=== PATIENT | female | born 1975 | race Caucasian/White ===

== ENCOUNTER 2025-02-10 23:01 | Emergency (ER) | payer OTHER, SELFPAY ==
--- OUTSIDE RECORDS SUMMARY | 2025-02-07 18:40 | XMS_ITS | Encounter Summary ---
Author Organization [employer] Address [address], [place] [address] Care Team Providers Care Second Floor Operator Name Role Phone Lora Zamora PA-C Primary Care Provider [phone] Reason for Visit * Reason Onset Date Comments MEDICATION THERAPY MANAGEMENT Me d check. Video Visit 02/07/2025 Encounter Details Date Type Department Care Team (Late st Contact Info) Description 02/07/2025 6:40 PM CDT Telemedicine [place] [address] [facility] [address] [place] [address] Lora Zamora PA-C [address] [place], [place] [id number] Prediabetes (Primary Dx); Gastroesophageal reflux disease, unspecified whether esophagitis present; Depression, unspecified depression type; Anxiety (HRC) Social History Tobacco Use Types Packs/Day Years Used Date Smoking Tobacco: Former Cigarettes Smokeless Tobacco: Never Comments:Used to smoke in [employer] Alcohol Use Standard Drinks/Week Comments No 0 (1 standard drink = 0.6 oz pur e alcohol) rare PHQ-2 Answer Date Recorded PHQ-2 Score 2 01/22/2025 Comments No Sex and Gender Information Value Date Recorded Sex Assigned at Not on file Legal Sex Female 6:09 AM CDT Gender Identity Not on file Sexual Orientation Not on file 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 Height - - Body Mass Index 41.88 11/06/2024 10:20 AM CDT documented in this encounter Progress Notes * Lora Zamora PA-C - 02/07/2025 6:40 PM CDT Subjective: Today's visit with Lizet was conducted via telehealth (video) as it is the patient's preference and it is appropriate for the treatment being provided Historical: Chief Complaint Patient presents with MEDICATION THERAPY MANAGEMENT Med check. Video Visit Medication Check: Which medication(s) are you here to have reviewed/refilled? Famotidine, omeprazole, sertraline Do you have difficulty taking medications as prescribed? No Do you have medication side effect concerns? No Pt is only taking famotidine and omeprazole once a day rather than twice so she has a large supply from the pharmacy. She doesn't need these filled, but would like the rx updated to the correct dosing. She feels good on the sertraline and would like to keep it the same. I have personally reviewed the patient's allergies, medications, past medical history, and health maintenance record in detail and updated the patient record as necessary. Observed: Wt 244 lb (110.7 kg) Comment: pt reported. BMI 41.88 kg/m?? Physical Exam: General Appearance: alert, well appearing, and in no apparent distress Assessment/Plan: Prediabetes - Hgb A1C (Expected: Now) - Collect in Lab; Future Gastroesophageal reflux disease, unspecified whether esophagitis present - famotidine (PEPCID) 20 MG tablet; Take 1 Tablet (20 mg) by mouth daily at bedtime. Depression, unspecified depression type - sertraline (ZOLOFT) 50 MG tablet; Take 1 Tablet (50 mg) by mouth daily. Anxiety (HRC) - sertraline (ZOLOFT) 50 MG tablet; Take 1 Tablet (50 mg) by mouth daily. Other orders - omeprazole (PRILOSEC) 40 MG capsule; Take 1 Capsule (40 mg) by mouth daily. Medications updated. She is due to have her A1c rechecked so can schedule this at her convenience. F/u prn. Lora Zamora PA-C documented in this encounter Plan of Treatment Upcoming Encounters Date Type Department Care Team (Late st Contact Info) Description 02/28/2025 9:30 AM CDT Telemedicine [facility] [address] [facility] [address] [place] [address] Charlotte Avalos PA-C [address] [place] [address] Scheduled Orders Name Type Priority Associated Diagnoses Orde r Schedule Hgb A1C (Expected: Now) - Collect in Lab Lab Routine Prediabetes Expected: 02/07/2025, Expires: 08/06/2025 documented as of this encounter Visit Diagnoses Diagnosis Prediabetes- Primary Other abnormal glucose Gastroesophageal reflux disease, unspecified whether esophagitis present Depression, unspecified depression type Anxiety (HRC) Anxiety state, unspecified documented in this encounter Care Teams Second Floor Operator Relationship Specialty Start Date End Date Lora Zamora PA-C [address] [place] [address] PCP - General Physician Bumper Machine Operator 02/17/22 documented as of this encounter
[2025-02-10 23:05] VITALS: BP 116/73; PULSE 90; RESP 16; TEMP 35.7; O2SAT 97; BMI 42.5
--- NOTE | 2025-02-10 23:58 | ED.GENADULT ---
HPI - General Adult General Time Seen by Provider: 23:59 Date Seen: 02/10/25 Chief complaint: Fall/Minor Trauma Stated complaint: syncope, hit head Time Seen by Provider: 02/10/25 23:58 Source: patient and family (spouse) Mode of arrival: ambulatory History of Present Illness HPI narrative: Lizet is a 50 female presents to the emergency department for evaluation of a closed head injury s/p fall/syncope. Patient states that this evening she was getting ready to go for bed got to go to bathroom to brush her teeth when she reached down to grab the garbage can and she felt as if she was going to throw up, patient and woke up on the floor. Patient believes that she passed out, does not remember events but does vaguely remember not feeling well. Patient states that she hit the right side of her head on the corner while pulling at the closet. Patient reports event happened around 2200. Patient complains of right-sided head pain, tongue pain, and left neck pain. Patient reports history of prior neck fusion at C5-C6 and C8-T1. Patient denies any chest pain, shortness of breath, abdominal pain, vomiting, weakness, paresthesias, urinary or bowel incontinence. Patient reports feeling well earlier today. No other complaints. Patient is not on chronic anticoagulation. Related Data Allergies Allergy/AdvReac Type Severity Reaction Status Date / Time No Known Drug Allergies Allergy Verified 02/10/25 23:10 Review of Systems Narrative: Past medical history, past surgical history, medications, allergies, family history, and social history were reviewed with the patient. No additional pertinent items. A medically appropriate review of systems was performed with pertinent positives and negatives noted in HPI, all other systems negative. PFSH PFSH Social History Non-prescribed substance use: denies use Exam Narrative: Exam Narrative: General: Afebrile, in distress HEENT: Normocephalic, +erythema/ecchymosis to right frontal forehead, right side of face with TTP, no bony TTP, PERRL, EOMI, conjunctiva normal. Normal bite. +laceration/bite noted to right side of tongue with no active bleeding, MMM Neck: supple, +midline TTP Cardio: regular rate. regular rhythm Resp: Normal work of breathing, no respiratory distress, lungs clear bilaterally, no wheezing, rhonchi, rales Chest/Back: no visual signs of trauma, no midline tenderness, no CVA tenderness Abdomen: soft, non distension, no tenderness, no peritoneal signs Neuro: alert and fully oriented. CN II-XII intact. Normal strength and sensation in all extremities. MSK: no deformities. Normal range of motion Integumentary/Skin: no rash visualized, normal color Psych: normal affect, normal behavior Const: Vital Signs, click to edit/add: Vital Signs - 24 hr 02/10/25 23:05 Temperature 96.3 F L Pulse Rate [Left P ulse Oximeter] 90 Respiratory Rate 16 Blood Pressure [Ri ght Upper Arm] 116/73 Pulse Oximetry 97 Oxygen Delivery Me thod Room Air Course Vital Signs Vital signs: Initial Vital Signs Temperature 96.3 F L 02/10/25 23:05 Temperature Source Temporal Artery Scan 02/10/25 23:05 Pulse Rate 90 02/10/25 23:05 Pulse Rhythm Regular 02/10/25 23:05 Respiratory Rate 16 02/10/25 23:05 Blood Pressure 116/73 02/10/25 23:05 Blood Pressure Mean 87 02/10/25 23:05 Blood Pressure Position Sitting 02/10/25 23:05 Pulse Oximetry 97 02/10/25 23:05 Oxygen Delivery Method Room Air 02/10/25 23:05 Vital Signs Temperature 96.3 F L 02/10/25 23:05 Pulse Rate 90 02/10/25 23:05 Respiratory Rate 16 02/10/25 23:05 Blood Pressure 116/73 02/10/25 23:05 Pulse Oximetry 97 02/10/25 23:05 Oxygen Delivery Method Room Air 02/10/25 23:05 Temperature 96.3 F L 02/10/25 23:05 Pulse Rate 90 02/10/25 23:05 Respiratory Rate 16 02/10/25 23:05 Blood Pressure 116/73 02/10/25 23:05 Pulse Oximetry 97 02/10/25 23:05 Oxygen Delivery Method Room Air 02/10/25 23:05 Medications Administered Medications: Generic Name Dose Route Start Last Admin Trade Name Freq PRN Reason Stop Dose Admin Potassium Chloride 40 meq 02/11/25 03:45 02/11/25 03:57 Potassium Chloride 10 Meq Capsule Er PO 02/11/25 03:46 40 meq ONCE ONE Administration Discontinued Medications Generic Name Dose Route Start Last Admin Trade Name Freq PRN Reason Stop Dose Admin Sodium Chloride 1,000 mls @ 1,000 mls/hr 02/11/25 00:45 02/11/25 02:10 0.9 % Sodium Chloride 1000 Ml IV 02/11/25 01:44 Infused .Q1H ERIC Infusion Ketorolac Tromethamine 15 mg 02/11/25 00:46 02/11/25 00:49 Ketorolac 15 Mg/Ml Inj IVP 02/11/25 00:47 15 mg ONCE ONE Administration Medical Decision Making MDM Narrative Medical decision making narrative: Lizet is a 50 female presents to the emergency department for evaluation of a closed head injury s/p fall/syncope. Upon arrival patient is nontoxic appearing, afebrile, in distress. Patient hemodynamically stable vital signs within normal limits. Differential diagnosis includes was not limited to syncope - cardiac versus vasovagal versus dehydration versus metabolic/electrolyte versus intracranial hemorrhage versus seizures versus mechanical fall among others. Plan for EKG, comprehensive labs, CT imaging and re-evaluation. @ 0042 I personally reviewed and interpreted CT head and CT cervical spine which demonstrated no acute intracranial abnormality, no acute hemorrhage, acute infarct, no midline shift. No acute abnormality of the cervical spine with no acute fracture, post traumatic subluxation. I reviewed EKG which demonstrates normal sinus rhythm with normal axis, ventricular rate of 81 beats per minute, QTC 453, no acute ischemic change. No prior EKG to compare to. Comprehensive labs remarkable for mild leukocytosis white blood cell count 13.5, hemoglobin 12.5, initial lactic acid elevated at 2.4. Potassium slightly low 3.3 which was replaced in the emergency department, no other acute metabolic electrolyte abnormality, repeat lactic acid down trending at 2.1. Urinalysis with no evidence of acute infection. Patient was treated with 1 L IV fluid bolus, toradol. On re-evaluation patient reports ongoing headache, neck pain but otherwise reports improvement of symptoms, denies any weakness, dizziness. Patient able to ambulate without difficulty. I discussed results with patient. Unclear etiology of patient's fall, suspect likely vasovagal syncope. Less likely cardiac No evidence of arrhythmia noted, EKG, troponin with no evidence of acute ischemic change. No evidence of significant infection or metabolic/electrolyte abnormality. Less likely seizure however I did discuss this as a possibility with patient. Would suspect patient's initial lactic to be significantly higher and to completely normalize by repeat. Patient does feel comfortable and is requesting discharge home which I think is reasonable. At this time recommend close outpatient follow-up with her primary care provider for re-evaluation in further outpatient management/testing. Strict return precautions if any worsening symptoms. Patient understands and agrees the plan. Medical Records Medical records reviewed: Yes I reviewed the patient's medical records Lab Data Lab results reviewed: Yes I reviewed the patient's lab results Labs: Lab Results 02/11/25 02/11/25 02/11/25 Range/Units 00:30 01:45 02:40 WBC 13.55 H (4.50-11.00) K/uL RBC 3.93 L (4.00-5.20) m/uL Hgb 12.5 (12.0-16.0) gm/dL Hct 37.1 (33.0-51.0) % MCV 94 (80-100) fL MCH 32 (26-34) pg MCHC 34 (32-36) gm/dL RDW Coeff of [place] 12.1 (11.5-15.5) % Plt Count 346 (140-440) K/uL Neut % (Auto) 78.4 H (42.0-72.0) % Lymph % (Auto) 13.5 L (20-44) % [place] % (Auto) 7.4 (0.0-11.0) % Eos % (Auto) 0.4 (0.0-7.0) % Baso % (Auto) 0.2 (0.0-3.0) % Neut # (Auto) 10.60 H (1.7-7.0) K/uL Lymph # (Auto) 1.80 (0.90-2.90) K/uL [place] # (Auto) 1.00 H (0.00-0.90) K/UL Eos # (Auto) 0.10 (0.00-0.50) K/uL Baso # (Auto) 0.00 (0.00-0.30) K/uL Abs Immat Gran (auto) 0.00 (0.00-0.30) K/uL Imm/Tot Granulo (auto) 0.1 % Sodium 139 (135-149) mmol/L Potassium 3.3 L (3.6-5.1) mmol/L Chloride 104 (96-114) mmol/L Carbon Dioxide 26 (20-32) mmol/L Anion Gap 9 (7-15) mEq/L BUN 22 (7-30) mg/dL Creatinine 0.8 (0.5-1.5) mg/dL Estimated Creat Clear 71.84 Estimated GFR 89 ml/min Glucose 101 (60-115) mg/dL Lactate 2.4 H 2.1 H (0.5-1.9) mmol/L Calcium 9.0 (8.4-10.6) mg/dL Total Bilirubin 0.5 (0.1-1.5) mg/dL AST 24 (12-35) U/L ALT 27 (4-35) U/L Alkaline Phosphatase 71 (40-150) U/L Troponin I < 0.01 (0.01-0.04) ng/mL Total Protein 6.9 (6.0-8.3) g/dL Albumin 4.0 (3.3-5.0) g/dL Urine Color Yellow (Yellow) Urine Appearance Clear (Clear) Urine pH 6.0 (5.0-8.5) Ur Specific [place] 1.025 (1.000-1.030) Urine Protein Negative (Negative) Urine Glucose (UA) Negative (Negative) Urine Ketones Negative (Negative) Urine Blood Negative (Negative) Urine Nitrite Negative (Negative) Urine Bilirubin Negative (Negative) Urine Urobilinogen 1.0 (0.2-1.0) Ur Leukocyte Esterase Negative (Negative) Urine RBC 0-2 (0-2) Urine WBC 0-2 (0-5) Ur Squamous Epith Cells Few (None-Few) Amorphous Sediment Few A (None) Urine Bacteria Few A (None) Discharge Plan Discharge Clinical Impression: Closed head injury, Fall, Neck pain Patient Disposition: Home, Self-Care Condition: Stable Additional Instructions: Please follow-up with your primary care provider next 2-3 days for further evaluation and follow-up. Please call to schedule appointment. Please rest, drink plenty of fluids. Please alternate taking Tylenol 1000 mg and ibuprofen 600 mg every 6 hours as needed for pain. Please return to the emergency department if you develop severe headache, persistent vomiting, changes in mental status, focal weakness, paresthesias, any worsening symptoms. It was a pleasure taking care of you today. We hope you feel better soon. Stand Alone Forms: [employer] Info Instructions
--- NOTE | 2025-02-11 00:10 | CRLHL7_ITS ---
For Patients: As a result of the Cures Act, medical imaging exams and procedure reports are released immediately into your electronic medical record. You may view this report before your referring provider. If you have questions, please contact your health care provider. INDICATION: Trauma. TECHNIQUE: CT cervical spine without contrast. COMPARISON: None. FINDINGS: No acute fracture or suspicious osseous lesion. Atlantoaxial and atlantooccipital alignment are preserved with mild atlantoaxial degenerative changes. There are postoperative changes at the cervicothoracic junction without evidence of acute complication. Multilevel spondylosis and degenerative disc disease is evident with multifocal disc space height loss and multilevel facet arthropathy. Paraspinal soft tissues grossly within normal limits. Visualized portions of the lungs are clear. IMPRESSION: No acute abnormality of the cervical spine. Please note that all CT scans at this facility use dose modulation, iterative reconstruction, and/or weight-based dosing when appropriate to reduce radiation dose to as low as reasonably achievable. Dictated by aDrek Peters MD @ 02/11/2025 12:39:29 AM (Electronically Signed)
--- NOTE | 2025-02-11 00:10 | CRLHL7_ITS ---
For Patients: As a result of the Century Cures Act, medical imaging exams and procedure reports are released immediately into your electronic medical record. You may view this report before your referring provider. If you have questions, please contact your health care provider. INDICATION: Trauma. TECHNIQUE: CT head without contrast. COMPARISON: None. FINDINGS: No acute intracranial hemorrhage. No CT evidence of acute territorial infarct. No hydrocephalus or midline shift. Normal parenchymal volume. Mild mucosal disease of the bilateral maxillary sinuses in addition to the left sphenoid sinus. Mastoid air cells well ventilated. No acute calvarial fracture. IMPRESSION: No acute intracranial abnormality. Please note that all CT scans at this facility use dose modulation, iterative reconstruction, and/or weight-based dosing when appropriate to reduce radiation dose to as low as reasonably achievable. Dictated by Darek Peters MD @ 02/11/2025 12:36:46 AM (Electronically Signed)
[2025-02-11 00:39] LABS: Lactate* 2.4 mmol/L (0.5-1.9)
[2025-02-11 00:40] LABS: Hematocrit 37.1 % (33.0-51.0); Hemoglobin* 12.5 gm/dL (12.0-16.0); Immature Granulocytes Pct Auto 0.1 %; Mean Corpuscular HGB Conc 34 gm/dL (32-36); Mean Corpuscular Hemoglobin 32 pg (26-34); Mean Corpuscular Volume 94 fL (80-100); RDW Coefficient of Variation % 12.1 % (11.5-15.5); Red Blood Count 3.93 m/uL (4.00-5.20); White Blood Count* 13.55 K/uL (4.50-11.00)
[2025-02-11 00:41] LABS: Immature Granulocytes Abs Auto 0.00 K/uL (0.00-0.30); Lymphocytes Absolute Auto 1.80 K/uL (0.90-2.90); Slide Review Reflex No
[2025-02-11 00:59] LABS: Albumin* 4.0 g/dL (3.3-5.0); Chloride* 104 mmol/L (96-114); Sodium* 139 mmol/L (135-149)
[2025-02-11 01:00] LABS: Potassium* 3.3 mmol/L (3.6-5.1)
--- OUTSIDE RECORDS SUMMARY | 2025-02-11 01:00 | XMS_ITS | Encounter Summary ---
Author Organization [employer] Address [address] [place] [address] Care Team Providers Care Remote Control Assembler Name Role Phone Lora Zamora PA-C Primary Care Provider Reason for Visit * Reason Comments Refill Topiramate Encounter Details Date Type Department Care Team (Late st Contact Info) Description 02/02/2025 Refill [facility] [address] [facility] [address] [place], [place] [address] Charlotte Avalos PA-C [address] [place], [place] [id number] Refill (Topiramate ) Social History Tobacco Use Types Packs/Day Years Used Date Smoking Tobacco: Former Cigarettes Smokeless Tobacco: Never Comments:Used to smoke in [employer] Alcohol Use Standard Drinks/Week Comments [...] 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 Follow up requested by provider: 4 months Since last seen she has no showed or cancelled the following appointments: none Labs are up to date Yes Medication refilled per standing order. Medication Detail Medication Quantity Refills Start End topiramate (TOPAMAX) 25 MG tablet 180 Tablet 0 11/06/2024 11/06/2025 Sig: Take 1 Tablet (25 mg) by mouth two times a day. Route: Oral Class: E-Prescribing Order #: [id number] documented in this encounter Plan of Treatment Upcoming Encounters Date Type Department Care Team (Late st Contact Info) Description 02/28/2025 9:30 AM CDT Telemedicine [facility] [address] [facility] [address] [place] [address] Charlotte Avalos PA-C [address] [place] [address] documented as of this encounter Visit Diagnoses Diagnosis Morbid obesity with BMI of 40.0-44.9, adult (HRC) Binge-eating disorder, mild documented in this encounter Care Teams Remote Control Assembler Relationship Specialty Start Date End Date Lora Zamora PA-C [address] [place] [address] PCP - General Physician Bus Monitor 02/17/22 documented as of this encounter
--- OUTSIDE RECORDS SUMMARY | 2025-02-11 01:00 | XMS_ITS | Encounter Summary ---
Author Organization [employer] Address [address], [place] [address] Care Team Providers Care Cuff Stitcher Name Role Phone Lora Zamora PA-C Primary Care Provider [phone] Reason for Visit * Reason Comments Refill sertraline (ZOLOFT) 50 MG tablet [Pharmacy Med Name: SERTRALINE HCL 50 MG TABLET] Encounter Details Date Type Department Care Team (Late st Contact Info) Description 01/27/2025 Refill [facility] [address] [facility] [address] [place] [address] Lora Zamora PA-C [address] [place], [place] [phone] Refill (sertraline (ZOLOFT) 50 MG tablet [Pharmacy Med Name: SERTRALINE HCL 50 MG TABLET]) Social History Tobacco Use Types Packs/Day Years Used Date Smoking Tobacco: Former Cigarettes Smokeless Tobacco: Never Comments:Used to smoke in [employer] school Alcohol Use Standard Drinks/Week Comments No [...] 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 Requested Prescriptions Signed Prescriptions Disp Refills sertraline (ZOLOFT) 50 MG tablet 30 Tablet 0 Sig: TAKE 1 TABLET BY MOUTH EVERY DAY Authorizing Provider: LORA ZAMORA Ordering User: JAZZ PRICE Future Appointments Date Time Provider Department Center 02/07/2025 6:40 PM Lora Zamora, DANNY [facility] 02/28/2025 9:30 AM Charlotte Avalos PA-C [address] [facility] [address] * Char Winslow [facility] - 01/27/2025 8:35 AM CDT sertraline (ZOLOFT) 50 MG tablet [Pharmacy Med Name: SERTRALINE HCL 50 MG TABLET] Medication started: 05/02/2019 Last ordered by LORA ZAMORA: 11/01/2024 (87 days ago) QTY: 90, Refills: 0, Sig: take 1 tablet by mouth every day (unchanged) -> An office visit is overdue (performed over 14 months ago, required every 12 months). Last qualifying visit: 12/01/2023 (with LORA ZAMORA) Next scheduled visit: 02/07/2025 (with LORA ZAMORA) Age: 49 [employer] Embedded Refills, Reference: [id number], 01/27/2025 8:35:14 AM CDT, Pool: IRMA Refill Centralized Services - Primary Care [[id number]] ([id number]) documented in this encounter Plan of Treatment Upcoming Encounters Date Type Department Care Team (Late st Contact Info) Description 02/28/2025 9:30 AM CDT Telemedicine [facility] [address] [facility] [address] [place], [place] [address] Charlotte Avalos PA-C [address] [place], [place] [phone] documented as of this encounter Visit Diagnoses Diagnosis Depression, unspecified depression type Anxiety (HRC) Anxiety state, unspecified documented in this encounter Care Teams Cuff Stitcher Relationship Specialty Start Date End Date Lora Zamora PA-C [address] [place] [address] PCP - General Physician Beeswax Bleacher 02/17/22 documented as of this encounter
--- OUTSIDE RECORDS SUMMARY | 2025-02-11 01:00 | XMS_ITS | Encounter Summary ---
Author Organization [facility] Address [address], [place] [address] Care Team Providers Care Surgeon Assistant Name Role Phone Lora Zamora PA-C Primary Care Provider [phone] Reason for Visit * Reason Comments Refill famotidine (PEPCID) 20 MG tablet [Pharmacy Med Name: FAMOTIDINE 20 MG TABLET] Encounter Details Date Type Department Care Team (Late st Contact Info) Description 01/14/2025 Refill [place] [address] [facility] [address] [place] [address] Lora Zamora PA-C [address] [place], [place] [id number] Refill (famotidine (PEPCID) 20 MG tablet [Pharmacy Med Name: FAMOTIDINE 20 MG TABLET]) Social History Tobacco Use Types Packs/Day Years Used Date Smoking Tobacco: Former Cigarettes Smokeless Tobacco: Never Comments:Used to smoke in [facility] [employer] Alcohol Use Standard Drinks/Week Comments No 0 (1 standard drink = 0.6 oz pur e alcohol) rare PHQ-2 Answer Date Recorded PHQ-2 Score 1 08/02/2023 Comments No Sex and Gender Information Value Date Recorded Sex Assigned at Not on file Legal Sex Female 6:09 AM CDT Gender Identity Not on file Sexual Orientation Not on file 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 * Carol Chapin - 01/18/2025 9:07 AM CDT Medication Refill - Due for Visit Medication still pending, patient is due to be seen in the next 30 days. Called patient, was: unable to reach patient. 1st call attempted. Left message to call back. Scheduling Action: Patient needs to schedule an appointment in the next 30 days. If able to schedule, please document date of appointment and route to clinician/pool identified in nursing documentation below. * Nolan Cotter RN - 01/17/2025 4:26 PM CDT Further Assistance Needed on Refill from Clinical Mental Health Counselor Patient is due for Qualifying Visit or Qualifying Visit and Labs Medication is still pending. Patient is due for an Office/Video Visit in the next 30 days. Call Patient and document using .STEPHON. After attempting to schedule patient: If appointment is scheduled within 60 days: Please route to: Refill pool If unable to schedule appointment or scheduled greater than 60 days: Please route to: Lora Zamora PA-C or covering clinician Requested Prescriptions Pending Prescriptions Disp Refills famotidine (PEPCID) 20 MG tablet [Pharmacy Med Name: FAMOTIDINE 20 MG TABLET] 180 Tablet Sig: TAKE 1 TABLET BY MOUTH 2X/DAY NEEDED FOR HEARTBURN. TAKE 20-40 MG PRIOR TO BED (NIGHT REFLUX) documented in this encounter Plan of Treatment Upcoming Encounters Date Type Department Care Team (Late st Contact Info) Description 02/28/2025 9:30 AM CDT Telemedicine [facility] [address] [facility] [address] [place] [address] Charlotte Avalos PA-C [address] [place], [place] [address] documented as of this encounter Visit Diagnoses Diagnosis Gastroesophageal reflux disease, unspecified whether esophagitis present documented in this encounter Care Teams Surgeon Assistant Relationship Specialty Start Date End Date Lora Zamora PA-C [address] [place] [address] PCP - General Physician Assistant Terminal Manager 02/17/22 documented as of this encounter
--- OUTSIDE RECORDS SUMMARY | 2025-02-11 01:00 | XMS_ITS | Encounter Summary ---
Author Organization [employer] Address [address] [place] [address] Care Team Providers Care Program Planner Name Role Phone Lora Zamora PA-C Primary Care Provider [phone] Encounter Details Date Type Department Care Team (Late st Contact Info) Description 02/17/2018 Consent for Procedure/Treatme nt [facility] Operating Room [address] [place] [address] [facility], Provider CONSENT FOR PROCEDURE Social History Tobacco Use Types Packs/Day Years Used Date Smoking Tobacco: Former Cigarettes Smokeless Tobacco: Never Comments:Used to smoke in [facility] [employer] Alcohol Use Standard Drinks/Week Comments No 0 (1 standard drink = 0.6 oz pur e alcohol) rare Comments No Sex and Gender Information Value Date Recorded Sex Assigned at Not on file Legal Sex Female 6:09 AM CDT Gender Identity Not on file Sexual Orientation Not on file 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 Not on file Not on fi le documented as of this encounter Plan of Treatment Upcoming Encounters Date Type Department Care Team (Late st Contact Info) Description 02/28/2025 9:30 AM CDT Telemedicine [facility] [address] [facility] [address] [place], [place] [phone] Charlotte Avalos PA-C [address] [place], [place] [address] documented as of this encounter Visit Diagnoses Not on filedocumented in this encounter Additional Health Concerns Infection Onset Date Last Indicated Resolved Time R/O COVID19 08/28/2020 08/28/2020 08/29/2020 4:35 AM POLICE CADET R/O COVID19 04/18/2021 04/18/2021 04/19/2021 3:01 PM CDT R/O COVID19 04/21/2021 04/21/2021 04/22/2021 11:5 9 AM CDT R/O COVID19 04/23/2021 04/23/2021 04/24/2021 12:2 0 PM CDT COVID19 04/23/2021 04/23/2021 05/13/2021 3:18 AM POLICE CADET documented as of this encounter Care Teams Program Planner Relationship Specialty Start Date End Date Lora Zamora PA-C [address] [place] [address] PCP - General Physician Night Warehouse Manager 02/17/22 documented as of this encounter
--- OUTSIDE RECORDS SUMMARY | 2025-02-11 01:00 | XMS_ITS | Encounter Summary ---
Author Organization [employer] Address [address] [place] [address] Care Team Providers Care Quality Compliance Coordinator Name Role Phone Lora Zamora PA-C Primary Care Provider Encounter Details Date Type Department Care Team (Late st Contact Info) Description 10/06/2012 Correspondence [facility] Radiology [address] [place] [address] Radiology, Provider MRI SAFETY SHEET AND COMPATIBILITY FORM Social History Tobacco Use Types Packs/Day Years Used Date Smoking Tobacco: Never Smokeless Tobacco: Never Alcohol Use Standard Drinks/Week Comments No 0 (1 standard drink = 0.6 oz pur e alcohol) Comments No Sex and Gender Information Value Date Recorded Sex Assigned at Not on file Legal Sex Female 6:09 AM CDT Gender Identity Not on file Sexual Orientation Not on file documented as of this encounter Progress Notes * RADIOLOGY, PROVIDER - 10/06/2012 12:00 AM CDT documented in this encounter Plan of Treatment Upcoming Encounters Date Type Department Care Team (Late st Contact Info) Description 02/28/2025 9:30 AM CDT Telemedicine [facility] [address] [facility] [address] [place] [address] Charlotte Avalos PA-C [address] [place] [address] documented as of this encounter Visit Diagnoses Not on filedocumented in this encounter Additional Health Concerns Infection Onset Date Last Indicated Resolved Time R/O COVID19 08/28/2020 08/28/2020 08/29/2020 4:35 AM MANAGER FAST FOOD R/O COVID19 04/18/2021 04/18/2021 04/19/2021 3:01 PM CDT R/O COVID19 04/21/2021 04/21/2021 04/22/2021 11:5 9 AM CDT R/O COVID19 04/23/2021 04/23/2021 04/24/2021 12:2 0 PM CDT COVID19 04/23/2021 04/23/2021 05/13/2021 3:18 AM MANAGER FAST FOOD documented as of this encounter Care Teams Quality Compliance Coordinator Relationship Specialty Start Date End Date Lora Zamora PA-C [address] [place] [address] PCP - General Physician Laborer Heading 02/17/22 documented as of this encounter
--- OUTSIDE RECORDS SUMMARY | 2025-02-11 01:01 | XMS_ITS | Encounter Summary ---
Author Organization [employer] Address [address] [place] [address] Care Team Providers Care Clothes Shaker Name Role Phone Lora Zamora PA-C Primary Care Provider Encounter Details Date Type Department Care Team (Late st Contact Info) Description 02/11/2016 Correspondence None No Primary/Referring, y E EQUIPMENT EDUCATIONAL DIRECTOR TICKET Social History Tobacco Use Types Packs/Day Years Used Date Smoking Tobacco: Former Cigarettes Smokeless Tobacco: Never Comments:Used to smoke in [employer] Alcohol Use Standard Drinks/Week Comments No 0 (1 standard drink = 0.6 oz pur e alcohol) Comments No Sex and Gender Information Value Date Recorded Sex Assigned at Not on file Legal Sex Female 6:09 AM CDT Gender Identity Not on file Sexual Orientation Not on file 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 Not on file Not on fi le documented as of this encounter Plan of Treatment Upcoming Encounters Date Type Department Care Team (Late st Contact Info) Description 02/28/2025 9:30 AM CDT Telemedicine [facility] [address] [facility] [address] [place], [place] [address] Charlotte Avalos PA-C [address] [place] [address] documented as of this encounter Visit Diagnoses Not on filedocumented in this encounter Additional Health Concerns Infection Onset Date Last Indicated Resolved Time R/O COVID19 08/28/2020 08/28/2020 08/29/2020 4:35 AM INFORMATION SYSTEMS SECURITY OFFICER R/O COVID19 04/18/2021 04/18/2021 04/19/2021 3:01 PM CDT R/O COVID19 04/21/2021 04/21/2021 04/22/2021 11:5 9 AM CDT R/O COVID19 04/23/2021 04/23/2021 04/24/2021 12:2 0 PM CDT COVID19 04/23/2021 04/23/2021 05/13/2021 3:18 AM INFORMATION SYSTEMS SECURITY OFFICER documented as of this encounter Care Teams Clothes Shaker Relationship Specialty Start Date End Date Lora Zamora PA-C [address] [place] [address] PCP - General Physician Diffusion Furnace Operator 02/17/22 documented as of this encounter
--- OUTSIDE RECORDS SUMMARY | 2025-02-11 01:01 | XMS_ITS | Clinical Summary ---
Author Organization [facility] Address [address] [place] [address] Care Team Providers Care Metal Finisher Name Role Phone Lora Zamora PA-C Primary Care Provider [phone] Allergies Active Allergy Reactions Criticality Noted Date Comments Chlorhexidine Itching 02/17/2018 preop skin prep wipe caused itching Medications Montelukast Sodium (SINGULAIR PO) Take 10 mg by mouth At Bedtime Active albuterol (PROVENTIL HFA: VENTOLIN HFA) 108 (90 BASE) MCG/ACT inhaler Inhale 2 puffs into the lungs every 6 hours as needed Active ipratropium - albuterol 0.5 mg/2.5 mg/3 mL (DUONEB) 0.5-2.5 (3) MG/3ML nebulization Take 3 mLs by nebulization every 6 hours as needed for shortness of breath / dyspnea. 30 vial 1 2 Active hydrochlorothiaz sandy (HYDRODIURIL) 25 MG tablet Take 25 mg by mouth daily 2 Active tiotropium (SPIRIVA RESPIMAT) 2.5 MCG/ACT inhaler INHALE 2 PUFFS DAILY. INDICATIONS: FOR ASTHMA FLARES 2 Active sertraline (ZOLOFT) 100 MG tablet Take 100 mg by mouth daily 2 Active mometasone (ELOCON) 0.1 % external cream Apply topically daily as needed 3 Active metFORMIN (GLUCOPHAGE) 500 MG tablet Take 500 mg by mouth 2 times daily (with meals) 2 Active mepolizumab (NUCALA) 100 MG/ML auto-injector Inject 100 mg Subcutaneous every 28 days 3 Active lisinopril (ZESTRIL) 10 MG tablet Take 10 mg by mouth daily 2 Active lifitegrast (XIIDRA) 5 % opthalmic solution Place 1 drop into both eyes 2 times daily 2 Active levothyroxine (SYNTHROID/LEVOT HROID) 175 MCG tablet Take 175 mcg by mouth daily 2 Active blood glucose (ACCU-CHEK GUIDE) test strip PLEASE DISPENSE A GLUCOSE METER, TEST STRIPS AND LANCETS TO TEST UP TO 3 TIMES DAILY 1 Active fluticasone-salm eterol (ADVAIR DISKUS) 500-50 MCG/ACT inhaler Inhale 1 puff into the lungs 2 times daily 2 Active fluticasone (FLONASE) 50 MCG/ACT nasal spray [place] 1 spray into both nostrils 2 times daily 2 Active fexofenadine (EDUARDO) 180 MG tablet TAKE 1 TABLET BY MOUTH EVERY DAY (OTC , NOT COVERED) 2 Active Lactobacillus (PROBIOTIC ACIDOPHILUS PO) Take 1 tablet by mouth daily Active oxyCODONE (ROXICODONE) 5 MG tabletIndication s:S/P cervical spinal fusion Take 1-2 tablets (5-10 mg) by mouth every 4 hours as needed for moderate to severe pain 12 tablet 3 Active senna-docusate (SENOKOT-S/PERIC OLACE) 8.6-50 MG tabletIndication s:S/P cervical spinal fusion Take 1 tablet by mouth daily 30 tablet 3 Active methocarbamol (ROBAXIN) 750 MG tabletIndication s:S/P cervical spinal fusion Take 1 tablet (750 mg) by mouth every 6 hours as needed for muscle spasms (muscle spasm) 60 tablet 3 Active famotidine (PEPCID) 20 MG tablet Take 20 mg by mouth 2 times daily Active omeprazole (PRILOSEC) [address] capsule Take 20 mg by mouth every morning Active omeprazole (PRILOSEC) [address] capsule Take 40 mg by mouth every evening Active Social History Tobacco Use Types Packs/Day Years Used Date Smoking Tobacco: Never Smokeless Tobacco: Never Tobacco Cessation:Counseling Given: Not Answered Alcohol Use Standard Drinks/Week Comments Yes 0 (1 standard drink = 0.6 oz pur e alcohol) very rarely Adolescent Education Answer Date Record ed Getting School Help Needed Not on file 04/02 Comments No Sex and Gender Information Value Date Recorded Sex Assigned at Not on file Legal Sex Female 4:47 AM MASTER CERTIFIED RV TECHNICIAN Gender Identity Not on file Sexual Orientation Not on file Last Filed Vital Signs Vital Sign Reading Time Taken Comments Blood Pressure 118/60 01/13/2023 7:51 AM CDT Pulse 100 01/13/2023 7:51 AM CDT Temperature 36.4 C (97.5 F) 01/13/2023 7:51 AM CDT Respiratory Rate 17 01/13/2023 7:51 AM CDT Oxygen Saturation 95% 01/13/2023 7:51 AM CDT Inhaled Oxygen Concentration - - Weight 127.6 kg (281 lb 6.4 oz) 01/12/2023 7:00 AM CDT Height 161.9 cm (5' 3.74) 01/12/2023 7:00 AM CD T Body Mass Index 48.7 01/12/2023 7:00 AM CDT Plan of Treatment Health Maintenance Due Date Last Done Comments ADVANCE CARE PLANNING 1974 ANNUAL REVIEW OF HM ORDERS 1974 CT COLONOGRAPHY 1974 FIT 1974 FLEX SIG 1974 sDNA (Cologuard) 1974 YEARLY PREVENTIVE VISIT 1977 COLONOSCOPY 01/31/1984 COLORECTAL CANCER SCREENING 01/31/1984 HIV SCREENING 1989 HEPATITIS C SCREENING 01/31/1992 HEPATITIS B VACCINE (1 of 3 - 19+ 3-dose series) 1993 PAP 1995 LIPID 2014 TSH W/FREE T4 REFLEX 05/19/2022 05/19/2021, 05/19/20 21 PNEUMOCOCCAL VACCINE 50+ YEARS (3 of 3 - PCV20 or PCV21) 01/31/2024 02/10/2018, 03/24/2017 ZOSTER VACCINE (1 of 2) 01/31/2024 COVID-19 VACCINE (3 - 2023- season) 2024 11/04/2020, 10/07/2020 PHQ-2 (once per calendar year) 2024 MAMMO SCREENING 09/29/2024 09/29/2022, 09/03, 09/12/2021, Additional history exists INFLUENZA VACCINE (#1) 2025 , 06/02/2021, 03/29/2020, Additional history exists DIABETES SCREENING 01/12/2026 01/12/2023, 0 01/12/2023, 02/16/2022, Additional history exists DTAP/TDAP/TD VACCINE (3 - Td or Tdap) 09/28/2028 09/28/2018, 04/17/2008 HPV VACCINE (No Doses Required) Completed MENINGITIS VACCINE Aged Out No longer eligible based on patient's age to complete this topic Medical Devices Implanted Type Area Mechanic Industrial Truck Device Identifier Shelf Expiration Date Model / Serial / Lot Graft Bone Putty [place] Dbm 1ml [id number] - [id number] Implanted:Qty: 1 on 01/12/2023 by Guillermo Moya MD at [facility] Bone/Tissu e/Biologic N/A: Spine Cervical [employer] [id number] 11/16/2024 [id number] / [id number] / Cage Spnl 14x8mm Endoskeleton Tc 6d 12mm Sm Ti Radopq Lg Wdw - [id number] Implanted:Qty: 1 on 01/12/2023 by Guillermo Moya MD at [facility] Metallic Hardware/A nchor N/A: Spine Cervical [employer] [id number] 12/20/2025 [id number] / / [id number] Imp Plate Cerv Medt Zevo 23mm 1 Lvl [id number] - [id number] Implanted:Qty: 1 on 01/12/2023 by Guillermo Moya MD at [facility] Metallic Hardware/A nchor N/A: Spine Cervical [employer] [id number] / / [id number] Imp Scr Medt Zevo 3.5x13mm Sd [place] [id number] - [id number] Implanted:Qty: 2 on 01/12/2023 by Guillermo Moya MD at [facility] Metallic Hardware/A nchor N/A: Spine Cervical [employer] [id number] / / [id number] Imp Scr Medt Zevo 4.0x13mm Sd [place] [id number] - [id number] Implanted:Qty: 2 on 01/12/2023 by Guillermo Moya MD at [facility] Metallic Hardware/A nchor N/A: Spine Cervical [employer] [id number] / / [id number] Explanted Type Area Mechanic Industrial Truck Device Identifier Shelf Expiration Date Model / Serial / Lot 1 Plate, 4 Screws, And 4 Locking Screw Caps Explanted:Qty: 9 on 01/12/2023 by Guillermo Moya MD at [facility] N/A: Spine Cervical Procedures Procedure Name Priority Date/Time Associated Diagnosis Comments GLUCOSE BY METER Routine 01/12/2023 7:25 AM CDT TSH WITH FREE T4 REFLEX STAT 05/19/2021 11:04 AM MASTER CERTIFIED RV TECHNICIAN from Last 3 Months or Most Recently Relevant to Health Maintenance Results * Glucose by meter (01/12/2023 7:25 AM CDT) Pathologist [facility] GLUCOSE BY METER POCT 89 70 - 99 mg/dL 01/12/2023 7:32 AM CDT LABORATORY POC Comment:Dr/RN Notified Blood, Capillary BLOOD SPECIMEN / Unknown 01/12/2023 7:25 AM CDT 01/12/2023 7:32 AM CDT us Guillermo Moya MD LAB - BEAKER POCT Final Result LABORATORY POC [facility] Acute Care Lab [address] [facility] Lab (1st floor, no room number) [place] [address], [facility] [phone] * (ABNORMAL) TSH with free T4 reflex (05/19/2021 11:04 AM MASTER CERTIFIED RV TECHNICIAN) Pathologist [facility] TSH 5.53(H) 0.40 - 4.00 mU/L 05/19/2021 11:46 AM MASTER CERTIFIED RV TECHNICIAN [facility] LABORATORY Blood STRUCTURE OF LEFT UPPER LIMB / Unknown Venipuncture / Unknown 05/19/2021 11:04 AM MASTER CERTIFIED RV TECHNICIAN 05/19/2021 11:14 AM MASTER CERTIFIED RV TECHNICIAN us Reji Walsh MD LAB - BLOOD ORDERABLES Final Res ult [facility] LABORATORY [facility] Acute Care Lab [address] Lab (1st floor, no room number) [place] [address], [facility] [phone] from Last 3 Months or Most Recently Relevant to Health Maintenance Insurance [facility] [employer] Advance Directives For more information, please contact: [phone] * Full Code (Latest Code Status on File) Date Activated Date Inactivated Comments 01/12/2023 1:47 PM 01/13/2023 12:39 PM All basic a nd advanced life-sustaining interventions are performed as appropriate Question Answer Comments Code status determined by: Other (please leslee joshi) Care Teams Metal Finisher Relationship Specialty Start Date End Date Lora Zamora PA-C PCP - General Family Practice 03/29/12
--- OUTSIDE RECORDS SUMMARY | 2025-02-11 01:01 | XMS_ITS | Clinical Summary ---
Author Organization [facility] Address [address] [place] [address] Care Team Providers Care Bell Clerk Name Role Phone Lora Zamora PA-C Primary Care Provider [phone] Source Comments You are receiving this document as you are listed as the primary care provider,follow-up provider, or the patient has been referred to you for consultation.This is in compliance with the Medicare andMedicaid EHR Incentive Program,which states Providers who transition their patient to another setting of careor provider of care or refers their patient to another provider of care shouldprovide summary care record for each transition of care or referral. Gnzo Allergies No known active allergies Medications * This document contains information received from the source organization and may not represent a complete record from that organization. Probiotic Product (PRO-BIOTIC BLEND OR) Active Blood Glucose Monitoring Suppl (ACCU-CHEK GUIDE MT) w/Device KITIndications:H yperinsulinemia ([facility]) USE DIRECTED 1 Kit 021 Active ACCU-CHEK FASTCLIX lancetsIndicatio ns:Hyperinsuline jacqui ([facility]) USE TO TEST UP TO 3 TIMES DAILY 102 Each 021 Active blood glucose (ACCU-CHEK GUIDE) test stripIndications :Hyperinsulinemi a ([facility]) PLEASE DISPENSE A GLUCOSE METER, TEST STRIPS AND LANCETS TO TEST UP TO 3 TIMES DAILY 100 Strip 11 021 Active XIIDRA 5 % SOLN 022 Active guaiFENesin 1200 MG Active tiotropium (SPIRIVA RESPIMAT) 2.5 MCG/ACT inhalerIndicatio ns:Moderate persistent asthma, uncomplicated (HRC) Inhale 2 Puffs daily. 3 Each 3 023 Active ipratropium-albu terol (DUONEB) 0.5-2.5 (3) mg/3ml nebulizer solution Inhale 3 mL every 6 hours as needed for Wheezing. 120 mL 11 023 Active budesonide, INHALATION, (PULMICORT) 1 MG/2ML suspension 024 Active fluticasone-salm eterol (ADVAIR DISKUS) 500-50 MCG/ACT diskus inhalerIndicatio ns:Moderate persistent asthma, uncomplicated (HRC),Moderate persistent asthma with acute exacerbation (HRC) Inhale 1 Puff two times a day. Rinse mouth/gargle after use 180 Each 3 024 Active montelukast (SINGULAIR) 10 MG tabletIndication s:Moderate persistent asthma, uncomplicated (HRC) Take 1 Tablet (10 mg) by mouth daily at bedtime. 90 Tablet 3 024 Active Mepolizumab (NUCALA) 100 MG/ML SOAJIndications: Eosinophilic asthma,Severe persistent asthma without complication (HRC) INJECT 100MG SUBCUTANEOUSLY EVERY 4 WEEKS 1 mL 11 024 Active fluticasone propionate (FLONASE) 50 MCG/ACT nasal solution Place 2 Sprays into both nostrils daily. 48 mL 3 024 Active cyclobenzaprine (FLEXERIL) 10 MG tablet TAKE 1 TABLET BY MOUTH AT BEDTIME NEEDED FOR MUSCLE SPASMS. 30 Tablet 2 024 Active fexofenadine (EDUARDO) 180 MG tablet TAKE 1 TABLET BY MOUTH EVERY DAY. *NOT COVERED 90 Tablet 1 025 Active Polyethylene Glycol 3350 Mix with 64 oz of Gatorade/Powerad e and take as directed in patient instructions from GI at 6 PM the evening prior to your procedure. 238 g 025 Active semaglutide (OZEMPIC) 8 MG/3ML SOPN injectionIndicat ions:Morbid obesity with BMI of 40.0-44.9, adult (HRC),Impaired fasting glucose Inject 2 mg subcutaneously once every week. 9 mL 1 025 Active metFORMIN (GLUCOPHAGE) 500 MG tabletIndication s:Morbid obesity with BMI of 40.0-44.9, adult (HRC),Insulin resistance Take 1 Tablet (500 mg) by mouth two times a day with meals. 180 Tablet 1 025 Active lisinopril-hydro chlorothiazide (PRINZIDE) 10-12.5 MG tabletIndication s:Essential hypertension (HRC) TAKE 1 TABLET BY MOUTH EVERY DAY 90 Tablet 025 Active ALBUterol sulfate HFA 108 (90 Base) MCG/ACT inhalerIndicatio ns:Moderate persistent asthma, uncomplicated (HRC) INHALE 1-2 PUFFS EVERY 4 HOURS NEEDED FOR WHEEZING OR SHORTNESS OF BREATH. 3 Each 3 025 Active mometasone (ELOCON) 0.1 % creamIndications :Dermatitis APPLY TOPICALLY TWO TIMES DAILY NEEDED. 105 g 1 025 Active levothyroxine (SYNTHROID) 112 MCG tabletIndication s:Hypothyroidism , unspecified type (HRC) Take 1 Tablet (112 mcg) by mouth daily. 90 Tablet 3 025 Active topiramate (TOPAMAX) 25 MG tabletIndication s:Morbid obesity with BMI of 40.0-44.9, adult (HRC),Binge-eati ng disorder, mild TAKE 1 TABLET BY MOUTH TWICE A DAY 180 Tablet 025 Active omeprazole (PRILOSEC) 40 MG capsule Take 1 Capsule (40 mg) by mouth daily. 90 Capsule 3 025 Active famotidine (PEPCID) 20 MG tabletIndication s:Gastroesophage al reflux disease, unspecified whether esophagitis present Take 1 Tablet (20 mg) by mouth daily at bedtime. 90 Tablet 3 025 Active sertraline (ZOLOFT) 50 MG tabletIndication s:Depression, unspecified depression type,Anxiety (HRC) Take 1 Tablet (50 mg) by mouth daily. 90 Tablet 3 025 Active pilocarpine (AKA SALAGEN) 5 MG tablet Take 1 tablet by mouth 4 times daily. 40 tablet 3 015 2015 Discontinued(* Patient decision or formulary issue) omeprazole (PRILOSEC) 40 MG capsule TAKE 1 CAPSULE (40 MG) BY MOUTH TWO TIMES A DAY. 180 Capsule 3 024 2024 Discontinued(* Med change OR same med OR reorder, new dose/direction s) famotidine (PEPCID) 20 MG tabletIndication s:Gastroesophage al reflux disease, unspecified whether esophagitis present Take 1 Tablet (20 mg) by mouth two times daily as needed for Heartburn. Take 20 mg to 40 mg prior to going to bed to help prevent night reflux. 180 Tablet 025 2024 Discontinued sertraline (ZOLOFT) 50 MG tabletIndication s:Depression, unspecified depression type,Anxiety (HRC) TAKE 1 TABLET BY MOUTH EVERY DAY 90 Tablet 025 2024 Discontinued topiramate (TOPAMAX) 25 MG tabletIndication s:Morbid obesity with BMI of 40.0-44.9, adult (HRC),Binge-eati ng disorder, mild Take 1 Tablet (25 mg) by mouth two times a day. 180 Tablet 025 2024 Discontinued famotidine (PEPCID) 20 MG tabletIndication s:Gastroesophage al reflux disease, unspecified whether esophagitis present TAKE 1 TABLET BY MOUTH 2X/DAY NEEDED FOR HEARTBURN. TAKE 20-40 MG PRIOR TO BED (NIGHT REFLUX) 60 Tablet 025 2024 Discontinued(* Med change OR same med OR reorder, new dose/direction s) sertraline (ZOLOFT) 50 MG tabletIndication s:Depression, unspecified depression type,Anxiety (HRC) TAKE 1 TABLET BY MOUTH EVERY DAY 30 Tablet 025 2024 Discontinued(* Med change OR same med OR reorder, new dose/direction s) Active Problems Problem Noted Date Diagnosed Date Major depressive disorder, recurrent, mild 11/06 Degenerative disc disease, cervical 06/18/2023 Elevated IgE level 08/21/2022 Snoring 08/21/2022 Binge-eating disorder, mild 06/04/2022 Insulin resistance 12/09/2021 Dyslipidemia 12/09/2021 Morbid obesity 10/09/2020 Cervical cancer screening 04/20/2017 Overview (04/26/2017): From visit on 04/13/17: History of abnormal pap tests? No 2013 NILM 2016 NILM ,neg HPV 42 y.o. 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 Other atopic dermatitis and related conditions 0 12/23/2005 Resolved Problems Problem Noted Date Diagnosed Date Resolved Date Hypertension 04/21/2013 12/29/2022 Migraine headache 07/04/2009 02/06/2010 HTN (hypertension) 05/09/2007 3 Overview (03/13/2015): ICD 10 Moderate persistent asthma 03/29/2007 0 12/29/2022 Encounters Date Type Department Care Team Description 02/07/2025 6:40 PM CDT Telemedicine [address] [phone] Lora Zamora PA-C Prediabetes (Primary Dx); Gastroesophageal reflux disease, unspecified whether esophagitis present; Depression, unspecified depression type; Anxiety (HRC) 02/02/2025 Refill [facility] [address] [place] [address] Charlotte Avalos PA-C Refill (Topiramate ) 01/27/[address] [address] Lora Zamora PA-C Refill (sertraline (ZOLOFT) 50 MG tablet [Pharmacy Med Name: SERTRALINE HCL 50 MG TABLET]) 01/14/[address] [address] Lora Zamora PA-C Refill (famotidine (PEPCID) 20 MG tablet [Pharmacy Med Name: FAMOTIDINE 20 MG TABLET]) 12/26/2024 Results Follow-Up [address] [phone] Lora Zamora PA-C 12/25/2024 11:30 AM CDT Lab Visit [address] [address] Hypothyroidism, unspecified type (HRC) 12/24/[address] [address] Lora Zamora PA-C Refill (mometasone (ELOCON) 0.1 % cream [Pharmacy Med Name: MOMETASONE FUROATE 0.1% CREAM]) 12/20/[address] [address] Lora Zamora PA-C Refill (levothyroxine (SYNTHROID) 112 MCG tablet [Pharmacy Med Name: LEVOTHYROXINE 112 MCG TABLET]) 12/06/2024 10:20 AM CDT E-Visit [address] [phone] Lora Zamora PA-C Dx: Acute non-recurrent sinusitis, unspecified location (Primary Dx) 11/16/2024 Refill Pulmonary at [facility] [address] [address] Lora Zamora PA-C Refill (ALBUterol sulfate HFA 108 (90 Base) MCG/ACT inhaler [Pharmacy Med Name: ALBUTEROL HFA (PROVENTIL) INH]) from Last 3 Months Immunizations Immunization Administration Dates Next Due Flu Vac (3+ yrs) 04/10/2010,03/15/2009, 8 Fluzone Qiv Multidose Vial 0 .25 (6-35 Mos) 04/05/2019,05/03/2018,03/24/2017,2015,04/14/2013 H1n1 Miv Novartis 4+ Yr (Injected) 05/28/2009 Influenza (Flucelvax), Prese rv Free QIV 05/21/2023 Influenza IIV4 (Quadrivalent ) 0.5mL (11902) 07/29/2022,06/02/2021,03/29/2020,2013,04/14/2013 Influenza ccIIV3 6 months+ (Flucelvax) 05/11/2024 Influenza, Unspecified Formulation 03/24/2017 Moderna Monovalent 12+ 11/04/2020,10/07/2020 PCV13 (Prevnar) 03/24/2017 PPSV23 (Pneumovax) 02/10/2018 Tdap 09/28/2018,04/17/2008 Family History Medical History Relation Name Comments Asthma Father Parents Coronary Artery Disease Father Parents 59 y o had CABG x4v, both his parents but lived into 90s Heart Disease Father Parents Hyperlipidemia Father Parents Hypertension Father Parents Hypertension Mother Parents and father Obesity Mother Parents Early Brother 2 Reji Colón Obesity Brother 2 Reji Colón Other Brother 3 iatrogenic live r failure from medications Cancer, Colon Maternal Grandmother colon ca 50's Obesity Sister 1 Diabetes, Type II Negative Family History Relation Name Status Comments Father Parents Alive Mother Parents Alive Brother 1 (Age 26) iatrogenic complications of medication Brother 2 Reji Colón Alive Brother 3 Daughter 1 Alive Daughter 2 Alive Maternal Grandfather Maternal Grandmother Paternal Grandfather Paternal Grandmother Sister 1 Alive Sister 2 Alive Son Alive Social History Tobacco Use Types Packs/Day Years Used Date Smoking Tobacco: Former Cigarettes Smokeless Tobacco: Never Comments:Used to smoke in [email or web address] Alcohol Use Standard Drinks/Week Comments No [...] Industry Job Start Date Job End Date [employer] Not on file Not on file Not on fi le Last Filed Vital Signs Vital Sign Reading Time Taken Comments Blood Pressure 125/74 09/05/2024 10:15 AM [employer] Pulse 77 09/05/2024 10:15 AM [employer]ER Temperature 37.2 C (98.9 F) 12/29/2022 11:29 AM CDT Respiratory Rate 16 09/05/2024 10:15 AM [employer] METAL [employer]ER Oxygen Saturation 96% 09/05/2024 10:15 AM [employer] METAL [employer]ER Inhaled Oxygen Concentration - - Weight 110.7 kg (244 lb) 02/07/2025 5:35 PM CDT pt reported. Height 162.6 cm (5' 4) 11/06/2024 10:20 AM CDT Body Mass Index 41.88 11/06/2024 10:20 AM CDT Plan of Treatment Upcoming Encounters Date Type Department Care Team (Late st Contact Info) Description 02/28/2025 9:30 AM CDT Telemedicine [facility] [address] [place] [address] Charlotte Avalos, PA-C [address] [place] [address] Health Maintenance Due Date Last Done Comments Adult Preventive Visit 12/31/2021 , 04/13/2017, 03/02/2014 Pneumococcal Vaccine 50+ Yrs (3 of 3 - PCV) 02/10/2023 02/10/2018, 03/24/2017 Zoster/Shingles Vaccine (1 of 2) 01/31/2024 COVID-19 Vaccine (3 - season) 2024 11/04/2020, 10/07/2020 Prediabetes: HGBA1C 11/09/2024 11/10/2023, 12/29/2022, 12/11/2021, Additional history exists Influenza Vaccine (#1) 2025 , 05/21/2023, 07/29/2022, Additional history exists Mammogram 02/22/2026 02/23/2024, 09/03, 09/10/2021, Additional history exists Cervical Cancer Screening 08/22/20262021, 08/22/2021, 04/13/2017, Additional history exists DTaP/Tdap/Td Vaccine (3 - Tdap) 09/28/2028 09/28/2018, 04/17/2008 Cholesterol 11/09/2028 11/10/2023, 06/0 03/2022, 04/13/2017, Additional history exists Colonoscopy 09/05/2029 09/05/2024 HIV Screening (Preventive Services) Completed 12/17/2014 Hep C Screening (Preventive Services) Completed 11/10/2023 HepA Vaccine Aged Out No longer eligi ble based on patient's age to complete this topic Hib Vaccine Aged Out No longer eligi ble based on patient's age to complete this topic IPV (Polio) Vaccine Aged Out No longe r eligible based on patient's age to complete this topic MCV4 Vaccine Aged Out No longer eligi ble based on patient's age to complete this topic Meningococcal B Vaccine Aged Out No l onger eligible based on patient's age to complete this topic Procedures Procedure Name Priority Date/Time Associated Diagnosis Comments TSH, SENSITIVE Routine 12/25/2024 11:23 AM CDT Hypothyroidism, unspecified type (HRC) COLONOSCOPY SCREENING Routine 09/05/2024 9:00 AM [employer]AL [employer]ER Screening for colon cancer MM MAMMOGRAM SCREENING BILAT W 3D DEVYN W CAD Routine 02/23/2024 8:22 AM CDT HGB A1C Routine 11/10/2023 7:59 AM CDT Screening for diabetes mellitus HEPATITIS C ANTIBODY, WITH REFLEX (ANTI-HCV) Routine 11/10/2023 7:59 AM CDT Need for hepatitis C screening test LIPID PANEL & DIRECT LDL (IF NEEDED) Routine 11/10/2023 7:59 AM CDT Dyslipidemia (HRC) HPV WITH 16 18 GENOTYPING, CERVICAL/ENDOCERVICA L Routine 08/22/2021 11:00 AM CORROSION PRE[employer]ION METAL SPRAYER Screening for cervical cancer HIV ANTIBODY Routine 12/17/2014 2:48 PM CDT Fatigue Myalgia from Last 3 Months or Most Recently Relevant to Health Maintenance Results * TSH (Expected: 6 weeks) (12/25/2024 11:23 AM CDT) TSH, Sensitive 3.06 0.30 - 4.50 uIU/mL 12/25/2024 6:11 PM CDT [facility] Blood Venipuncture / Unknown 12/25/2024 11:23 AM CDT 12/25/2024 11:23 AM CDT us Lora Zamora PA-C LAB_1 Final Result Performing Organization Address City/State/[facility] Co de Phone Number [facility] [email or web address] * Colonoscopy Screening (09/05/2024 9:00 AM CORROSION PREVENTION METAL SPRAYER) Anatomical Region Laterality Modality Other 09/05/2024 9:00 AM [employer]ION [employer]ION METAL SPR[employer]ER Narrative 09/05/2024 9:00 AM [employer]ION [employer]ION METAL SPR[employer]ER Patient Name: Lizet Reyes Procedure Date: 09/05/2024 9:00 AM Date of : 1975 Admit Type: Outpatient Age: 49 Gender: Female Note Status: Finalized Attending MD: Loi Chakraborty MD, Procedure: Colonoscopy Indications: Screening for colorectal malignant neoplasm, This is the patient's first colonoscopy Providers: Loi Chakraborty MD, Cat Cook Patient Profile: 49 year old woman undergoing her first screening colonoscopy. She describes alternating constipation with diarrhea. Diarrhea occurs approximately once per week. She takes ibuprofen 600 mg 1-2 x weekly. Family history is notable for her father and brother with polyps and maternal grandmother with colon cancer. Referring MD: Lora Zamora Medicines: Midazolam 5 mg IV, Fentanyl 125 micrograms IV, Oxygen 2 L/min Complications: No immediate complications. Estimated blood loss: Minimal. Procedure: After I obtained informed consent, the scope was passed under direct vision. Throughout the procedure, the patient's blood pressure, pulse, and oxygen saturations were monitored continuously. The [id number] was introduced through the anus and advanced to 5 cm into the ileum. The colonoscopy was performed with moderate difficulty due to significant looping, the patient's body habitus and the patient's discomfort during the procedure. Successful completion of the procedure was aided by increasing the dose of sedation medication, changing the patient to a supine position and using manual pressure. The patient tolerated the procedure well. The quality of the bowel preparation was evaluated using the BBPS ([place] Bowel Preparation Scale) with scores of: Right Colon = 2 (minor amount of residual staining, small fragments of stool and/or opaque liquid, but mucosa seen well), Transverse Colon = 2 (minor amount of residual staining, small fragments of stool and/or opaque liquid, but mucosa seen well) and Left Colon = 2 (minor amount of residual staining, small fragments of stool and/or opaque liquid, but mucosa seen well). The total BBPS score equals 6. The quality of the bowel preparation was adequate after extensive irrigation and suctioning. The terminal ileum, ileocecal valve, appendiceal orifice, and rectum were photographed. Findings: The terminal ileum appeared normal. Patchy mild inflammation characterized by altered vascularity, erosions and erythema was found in the ascending colon and in the cecum. Biopsies were taken with a cold forceps for histology. Verification of patient identification for the specimen was done using the patient's name and date. Estimated blood loss was minimal. A 5 mm polyp was found in the cecum. The polyp was sessile. The polyp was removed with a cold snare. Resection and retrieval were complete. Verification of patient identification for the specimen was done using the patient's name and date. Estimated blood loss was minimal. Two sessile polyps were found in the rectum. The polyps were 3 to 4 mm in size. These polyps were removed with a cold snare. Resection and retrieval were complete. Verification of patient identification for the specimen was done using the patient's name and date. Estimated blood loss was minimal. Scattered medium-mouthed diverticula were found in the sigmoid colon, descending colon and transverse colon. Non-bleeding external and internal hemorrhoids were found during retroflexion and during perianal exam. The hemorrhoids were mild. The exam was otherwise without abnormality on direct and retroflexion views. Moderate Sedation: Moderate (conscious) sedation was administered by the nurse and supervised by the endoscopist. The following parameters were monitored: oxygen saturation, heart rate, blood pressure, and response to care. Total physician intraservice time was 17 minutes. This time is the duration from the initial medication administration until the liability claims manager assists with initial maneuvers (biopsy / polypectomy / etc.), or if no maneuvers are performed, until the endoscopist leaves the room. Total procedure duration 40 minutes. Impression: - The examined portion of the ileum was normal. - Patchy mild inflammation was found in the ascending colon and in the cecum. I suspect this could be due to NSAIDs or bowel prep effect, although mild Crohn's could also have this appearance. Biopsied. - One 5 mm polyp in the cecum, removed with a cold snare. Resected and retrieved. - Two 3 to 4 mm polyps in the rectum, removed with a cold snare. Resected and retrieved. - Diverticulosis in the sigmoid colon, in the descending colon and in the transverse colon. - Non-bleeding external and internal hemorrhoids. - The examination was otherwise normal on direct and retroflexion views. Recommendation: - Discharge patient to home. - High fiber diet. - Await pathology results. - Repeat colonoscopy for surveillance based on pathology results. - For future colonoscopy the patient will require an extended 2 day bowel prep. - Patient's sedation for a repeat study will require propofol. - The findings and recommendations were discussed with the patient. Procedure Code(s): --- Professional --- 93340, Colonoscopy, flexible; with removal of tumor(s), polyp(s), or other lesion(s) by snare technique 62978, 59, Colonoscopy, flexible; with biopsy, single or multiple G0500, Moderate sedation services provided by the same physician or other qualified health healthcare consultant performing a gastrointestinal endoscopic service that sedation supports, requiring the presence of an independent trained observer to assist in the monitoring of the patient's level of consciousness and physiological status; initial 15 minutes of intra-service time; patient age 5 years or older (additional time may be reported with 90561, as appropriate) Diagnosis Code(s): --- Professional --- Z12.11, Encounter for screening for malignant neoplasm of colon K64.8, Other hemorrhoids K52.9, Noninfective gastroenteritis and colitis, unspecified D12.0, Benign neoplasm of cecum D12.8, Benign neoplasm of rectum K57.30, Diverticulosis of large intestine without perforation or abscess without bleeding CPT copyright 2022 [employer]. All rights reserved. The codes documented in this report are preliminary and upon android ios developer review may be revised to meet current compliance requirements. Loi Chakraborty MD 09/05/2024 10:03:57 AM Number of Addenda: 0 Note Initiated On: 09/05/2024 9:00 AM Endoscopy Report Procedure Note Loi Chakraborty MD - 09/05/2024 Patient Name: Lizet Reyes Procedure Date: 09/05/2024 9:00 AM Date of : 1975 Admit Type: Outpatient Age: 49 Gender: Female Note Status: Finalized Attending MD: Loi Chakraborty MD, Procedure: Colonoscopy Indications: Screening for colorectal malignant neoplasm, This is the patient's first colonoscopy Providers: Loi Chakraborty MD, Cat Cook Patient Profile: 49 year old woman undergoing her first screening colonoscopy. She describes alternating constipation with diarrhea. Diarrhea occurs approximately once per week. She takes ibuprofen 600 mg 1-2 x weekly. Family history is notable for her father and brother with polyps and maternal grandmother with colon cancer. Referring MD: Lora Zamora Medicines: Midazolam 5 mg IV, Fentanyl 125 micrograms IV, Oxygen 2 L/min Complications: No immediate complications. Estimated blood loss: Minimal. Procedure: After I obtained informed consent, the scope was passed under direct vision. Throughout the procedure, the patient's blood pressure, pulse, and oxygen saturations were monitored continuously. The [id number] was introduced through the anus and advanced to 5 cm into the ileum. The colonoscopy was performed with moderate difficulty due to significant looping, the patient's body habitus and the patient's discomfort during the procedure. Successful completion of the procedure was aided by increasing the dose of sedation medication, changing the patient to a supine position and using manual pressure. The patient tolerated the procedure well. The quality of the bowel preparation was evaluated using the BBPS ([place] Bowel Preparation Scale) with scores of: Right Colon = 2 (minor amount of residual staining, small fragments of stool and/or opaque liquid, but mucosa seen well), Transverse Colon = 2 (minor amount of residual staining, small fragments of stool and/or opaque liquid, but mucosa seen well) and Left Colon = 2 (minor amount of residual staining, small fragments of stool and/or opaque liquid, but mucosa seen well). The total BBPS score equals 6. The quality of the bowel preparation was adequate after extensive irrigation and suctioning. The terminal ileum, ileocecal valve, appendiceal orifice, and rectum were photographed. Findings: The terminal ileum appeared normal. Patchy mild inflammation characterized by altered vascularity, erosions and erythema was found in the ascending colon and in the cecum. Biopsies were taken with a cold forceps for histology. Verification of patient identification for the specimen was done using the patient's name and date. Estimated blood loss was minimal. A 5 mm polyp was found in the cecum. The polyp was sessile. The polyp was removed with a cold snare. Resection and retrieval were complete. Verification of patient identification for the specimen was done using the patient's name and date. Estimated blood loss was minimal. Two sessile polyps were found in the rectum. The polyps were 3 to 4 mm in size. These polyps were removed with a cold snare. Resection and retrieval were complete. Verification of patient identification for the specimen was done using the patient's name and date. Estimated blood loss was minimal. Scattered medium-mouthed diverticula were found in the sigmoid colon, descending colon and transverse colon. Non-bleeding external and internal hemorrhoids were found during retroflexion and during perianal exam. The hemorrhoids were mild. The exam was otherwise without abnormality on direct and retroflexion views. Moderate Sedation: Moderate (conscious) sedation was administered by the nurse and supervised by the endoscopist. The following parameters were monitored: oxygen saturation, heart rate, blood pressure, and response to care. Total physician intraservice time was 17 minutes. This time is the duration from the initial medication administration until the liability claims manager assists with initial maneuvers (biopsy / polypectomy / etc.), or if no maneuvers are performed, until the endoscopist leaves the room. Total procedure duration 40 minutes. Impression: - The examined portion of the ileum was normal. - Patchy mild inflammation was found in the ascending colon and in the cecum. I suspect this could be due to NSAIDs or bowel prep effect, although mild Crohn's could also have this appearance. Biopsied. - One 5 mm polyp in the cecum, removed with a cold snare. Resected and retrieved. - Two 3 to 4 mm polyps in the rectum, removed with a cold snare. Resected and retrieved. - Diverticulosis in the sigmoid colon, in the descending colon and in the transverse colon. - Non-bleeding external and internal hemorrhoids. - The examination was otherwise normal on direct and retroflexion views. Recommendation: - Discharge patient to home. - High fiber diet. - Await pathology results. - Repeat colonoscopy for surveillance based on pathology results. - For future colonoscopy the patient will require an extended 2 day bowel prep. - Patient's sedation for a repeat study will require propofol. - The findings and recommendations were discussed with the patient. Procedure Code(s): --- Professional --- 56725, Colonoscopy, flexible; with removal of tumor(s), polyp(s), or other lesion(s) by snare technique 12026, 59, Colonoscopy, flexible; with biopsy, single or multiple G0500, Moderate sedation services provided by the same physician or other qualified health healthcare consultant performing a gastrointestinal endoscopic service that sedation supports, requiring the presence of an independent trained observer to assist in the monitoring of the patient's level of consciousness and physiological status; initial 15 minutes of intra-service time; patient age 5 years or older (additional time may be reported with 11103, as appropriate) Diagnosis Code(s): --- Professional --- Z12.11, Encounter for screening for malignant neoplasm of colon K64.8, Other hemorrhoids K52.9, Noninfective gastroenteritis and colitis, unspecified D12.0, Benign neoplasm of cecum D12.8, Benign neoplasm of rectum K57.30, Diverticulosis of large intestine without perforation or abscess without bleeding CPT copyright 3 [employer]. All rights reserved. The codes documented in this report are preliminary and upon android ios developer review may be revised to meet current compliance requirements. Loi Chakraborty MD 09/05/2024 10:03:57 AM Number of Addenda: 0 Note Initiated On: 09/05/2024 9:00 AM Endoscopy Report us Lora Zamora PA-C ET GI PROCEDURE ORDERABLES E dited Result - Final * MM Mammogram Screening Bilat W 3D Devyn W CAD (02/23/2024 8:22 AM CDT) Anatomical Region Laterality Modality Breast Bilateral Mammography Impressions 02/23/2024 8:33 AM CDT : ACR BI-RADS Category 2: Benign RECOMMENDATION: Follow Up Imaging in 12 months - Bilateral The results and recommendations of this examination will be communicated to the patient. Narrative 02/23/2024 8:33 AM CDT MM MAMMOGRAM SCREENING BILAT W 3D DEVYN W CAD performed on 02/23/24 Compared to: 09/29/2022 MM Mammogram Screening Bilat W 3D Devyn W CAD, 09/10/2021 MM Mammogram Screening Bilat W 3D Devyn W CAD, and 05/05/2017 MM Mammogram Screening Bilat W CAD FINDINGS: Bilateral screening mammogram was performed with the assistance of Computer-Aided Detection and breast tomosynthesis. There are scattered areas of fibroglandular density. There are changes of breast reduction. There is no radiographic evidence of malignancy. Lora Zamora PA-C RAD JOS Final Result * (ABNORMAL) Lipid Panel and Direct LDL(If Needed) (11/10/2023 7:59 AM CDT) Cholesterol 152 0 - 199 mg/dL 11/10/2023 10:23 AM [facility] Triglyceride 149 <=149 mg/dL 11/10/2023 10:23 AM [facility] HDL Cholesterol 32(L) >=40 mg/dL 10:23 AM [facility] LDL, Calculated 90 <130 mg/dL 10:23 AM [facility] Non HDL Chol, Calculated 120 <=159 mg/dL 11/10/2023 10:23 AM [facility] Cholesterol/HDL Ratio 4.8 <=5.0 11/10/2023 10:23 AM [facility] Hours Fasting 12.0 8 - 12 Hours 11/10/2023 10:23 AM [facility] Blood Venipuncture / Unknown 11/10/2023 7:59 AM CDT 11/10/2023 7:59 AM CDT us Lora Zamora PA-C LAB_1 Final Result [facility] [address] [place] [address], [facility] [address] [place] [address] * Hepatitis C Antibody, with Reflex (11/10/2023 7:59 AM CDT) [facility] Hepatitis C Antibody Negative (Non Reactive) Negative (Non Reactive) 11/10/2023 12:38 PM CDT [facility] Comment:Antibodies to HCV no t detected. Does not exclude the possiblity of exposure to HCV. Blood Venipuncture / Unknown 11/10/2023 7:59 AM CDT 11/10/2023 7:59 AM CDT us Lora Zamora PA-C LAB_1 Final Result Performing Organization Address City/[facility]/ZIP Co de Phone Number [facility] [address] * Hgb A1C (Expected: Now) - Collect in Lab (11/10/2023 7:59 AM CDT) [facility] Hemoglobin A1C 5.3 <=5.6 % 11/10/2023 2:42 PM CDT [facility] Estimated Average Glucose (Calc) 105 < 117 mg/dL 11/10/2023 2:42 PM CDT [facility] Comment:Estimated average gl ucose (eAG) converts A1c into glucose units (mg/dL) and estimates average glucose over the past approximately 3 months. The eAG reference interval (<117 mg/dL) corresponds to an A1c of <5.7%. Blood Venipuncture / Unknown 11/10/2023 7:59 AM CDT 11/10/2023 7:59 AM CDT us Lora Zamora PA-C LAB_1 Final Result [facility] [address] * HPV with 16 18 Genotyping (08/22/2021 11:00 AM CORROSION PREVENTION METAL SPRAYER) [facility] HPV High Risk Type 16 PCR Not Detected Not detected 08/26/2021 1:30 PM [facility] HPV High Risk Type 18 PCR Not Detected Not Detected 08/26/2021 1:30 PM [facility] HPV High Risk Other Than 16/18 Not Detected Not detected 08/26/2021 1:30 PM [facility] Cervical Broom ENTIRE ENDOCERVIX / Unknown 08/22/2021 11:00 AM CORROSION PREVENTION METAL SPRAYER 08/22/2021 12:27 PM CORROSION PREVENTION METAL SPRAYER Narrative [facility] - 08/26/2021 1:30 PM CORROSION PREVENTION METAL SPRAYER The Jess HPV test is a qualitative in vitro test for the detection of Human Papillomavirus in [facility] patient specimens. The test utilizes amplification of target DNA by Polymerase Chain Reaction (PCR) and nucleic acid hybridization for the detection of 14 high-risk (HR) HPV types. The assay tests for high risk types (16, 18, 31, 33, 35, 39, 45, 51, 52, 56, 58, 59, 66, and 68). Nathaly Holguin APRN, CNM LAB_1 Final Result [id number] [place] [address] * HIV ANTIBODY (12/17/2014 2:48 PM CDT) Pathologist [facility] HIV 1/2 Antibody Negative (Non Reactive) [facility] Comment: HIV Antibody testing may be falsely negative during the window period. If the patient has had recent exposure (within the past four weeks), consider contacting Infectious Diseases for clarification. 12/17/2014 2:48 PM CDT 12/17/2014 2:50 PM CDT Narrative [facility] - 12/18/2014 10:35 AM CDT Performed at [facility], [address] [place] [address] us Lora Zamora PA-C LAB_1 Final Result [facility] [phone] from Last 3 Months or Most Recently Relevant to Health Maintenance Insurance [facility] [id number] (Work) [id number] [place] [id number] Advance Directives * Full Code (Latest Code Status on File) Date Activated Date Inactivated Comments 02/17/2018 1:55 PM 02/17/2018 6:19 PM Care Teams Bell Clerk Relationship Specialty Start Date End Date Lora Zamora, DANNY [address] [place] [address] PCP - General Physician Aircraft Fuselage Framer 02/17/22
--- OUTSIDE RECORDS SUMMARY | 2025-02-11 01:01 | XMS_ITS | Encounter Summary ---
Author Organization [employer] Address [address], [place] [address] Care Team Providers Care Cementing Bulk Material Operator Name Role Phone Lora Zamora PA-C Primary Care Provider [phone] Encounter Details Date Type Department Care Team (Late st Contact Info) Description 12/20/2014 Correspondence External to External, [place] [address] DISABILITY PLAN Social History Tobacco Use Types Packs/Day Years Used Date Smoking Tobacco: Former Cigarettes Smokeless Tobacco: Never Comments:Used to smoke in [employer] Alcohol Use Standard Drinks/Week Comments No 0 (1 standard drink = 0.6 oz pur e alcohol) Comments No Sex and Gender Information Value Date Recorded Sex Assigned at Not on file Legal Sex Female 6:09 AM CDT Gender Identity Not on file Sexual Orientation Not on file 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 Not on file Not on fi le documented as of this encounter Plan of Treatment Upcoming Encounters Date Type Department Care Team (Late st Contact Info) Description 02/28/2025 9:30 AM CDT [facility] [address] [facility] [address] [place], [place] [address] Charlotte Avalos PA-C [address] [place], [place] [address] documented as of this encounter Visit Diagnoses Not on filedocumented in this encounter Additional Health Concerns Infection Onset Date Last Indicated Resolved Time R/O COVID19 08/28/2020 08/28/2020 08/29/2020 4:35 AM MEDIA TECHNICIAN R/O COVID19 04/18/2021 04/18/2021 04/19/2021 3:01 PM CDT R/O COVID19 04/21/2021 04/21/2021 04/22/2021 11:5 9 AM CDT R/O COVID19 04/23/2021 04/23/2021 04/24/2021 12:2 0 PM CDT COVID19 04/23/2021 04/23/2021 05/13/2021 3:18 AM MEDIA TECHNICIAN documented as of this encounter Care Teams Cementing Bulk Material Operator Relationship Specialty Start Date End Date Lora Zamora PA-C [address] [place] [address] PCP - General Physician Tea Bag Machine Tender 02/17/22 documented as of this encounter
--- OUTSIDE RECORDS SUMMARY | 2025-02-11 01:01 | XMS_ITS | Encounter Summary ---
Author Organization [employer] Address [address], [place] [address] Care Team Providers Care It Telecom Technician Name Role Phone Lora Zamora PA-C Primary Care Provider [phone] Encounter Details Date Type Department Care Team (Late st Contact Info) Description 02/11/2016 Correspondence None No Primary/Referring, Phy DME INSTRUCTION DELIVERY Social History Tobacco Use Types Packs/Day Years Used Date Smoking Tobacco: Former Cigarettes Smokeless Tobacco: Never Comments:Used to smoke in [employer] school Alcohol Use Standard Drinks/Week Comments No 0 (1 standard drink = 0.6 oz pur e alcohol) Comments No Sex and Gender Information Value Date Recorded Sex Assigned at Not on file Legal Sex Female 6:09 AM CDT Gender Identity Not on file Sexual Orientation Not on file 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 Not on file Not on fi le documented as of this encounter Plan of Treatment Upcoming Encounters Date Type Department Care Team (Late st Contact Info) Description 02/28/2025 9:30 AM CDT Tele[facility] [address] [facility] [address] [place], [place] [address] Charlotte Avalos PA-C [address] [place] [address] documented as of this encounter Visit Diagnoses Not on filedocumented in this encounter Additional Health Concerns Infection Onset Date Last Indicated Resolved Time R/O COVID19 08/28/2020 08/28/2020 08/29/2020 4:35 AM HEAVY COIL WINDER R/O COVID19 04/18/2021 04/18/2021 04/19/2021 3:01 PM CDT R/O COVID19 04/21/2021 04/21/2021 04/22/2021 11:5 9 AM CDT R/O COVID19 04/23/2021 04/23/2021 04/24/2021 12:2 0 PM CDT COVID19 04/23/2021 04/23/2021 05/13/2021 3:18 AM HEAVY COIL WINDER documented as of this encounter Care Teams It Telecom Technician Relationship Specialty Start Date End Date Lora Zamora PA-C [address] [place] [address] PCP - General Physician Real Estate Sales Associate 02/17/22 documented as of this encounter
--- OUTSIDE RECORDS SUMMARY | 2025-02-11 01:01 | XMS_ITS | Encounter Summary ---
Author Organization [employer] Address [address] [address] Care Team Providers Care Project Assistant Name Role Phone Lora Zamora PA-C Primary Care Provider [phone] Encounter Details Date Type Department Care Team (Late st Contact Info) Description 12/28/2014 Correspondence [facility] [address] [place] [phone] Lora Zamora PA-C [address] [place] [address] FMLA Social History Tobacco Use Types Packs/Day Years Used Date Smoking Tobacco: Former Cigarettes Smokeless Tobacco: Never Comments:Used to smoke in [employer] school Alcohol Use Standard Drinks/Week Comments No 0 (1 standard drink = 0.6 oz pur e alcohol) Comments No Sex and Gender Information Value Date Recorded Sex Assigned at Not on file Legal Sex Female 6:09 AM CDT Gender Identity Not on file Sexual Orientation Not on file 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 Not on file Not on fi le documented as of this encounter Plan of Treatment Upcoming Encounters Date Type Department Care Team (Late st Contact Info) Description 02/28/2025 9:30 AM CDT Telemedicine [facility] [address] [facility] [address] [place], [place] [address] Charlotte Avalos PA-C [address] [place] [address] documented as of this encounter Visit Diagnoses Not on filedocumented in this encounter Additional Health Concerns Infection Onset Date Last Indicated Resolved Time R/O COVID19 08/28/2020 08/28/2020 08/29/2020 4:35 AM PRESIDENT CONSUMER [employer] R/O COVID19 04/18/2021 04/18/2021 04/19/2021 3:01 PM CDT R/O COVID19 04/21/2021 04/21/2021 04/22/2021 11:5 9 AM CDT R/O COVID19 04/23/2021 04/23/2021 04/24/2021 12:2 0 PM CDT COVID19 04/23/2021 04/23/2021 05/13/2021 3:18 AM PRESIDENT [employer] documented as of this encounter Care Teams Project Assistant Relationship Specialty Start Date End Date Lora Zamora PA-C [address] [place] [address] PCP - General Physician Director Of Outreach 02/17/22 documented as of this encounter
--- OUTSIDE RECORDS SUMMARY | 2025-02-11 01:01 | XMS_ITS | Encounter Summary ---
Author Organization [employer] Address [address] [address] Care Team Providers Care Green Chain Marker Name Role Phone Lora Zamora PA-C Primary Care Provider [phone] Encounter Details Date Type Department Care Team (Late st Contact Info) Description 01/23/2015 Correspondence [facility] [address] [place] [phone] Lora Zamora PA-C [address] [place] [address] FMLA Social History Tobacco Use Types Packs/Day Years Used Date Smoking Tobacco: Former Cigarettes Smokeless Tobacco: Never Comments:Used to smoke in [employer] school Alcohol Use Standard Drinks/Week Comments No 0 (1 standard drink = 0.6 oz pur e alcohol) Comments No Sex and Gender Information Value Date Recorded Sex Assigned at Not on file Legal Sex Female 6:09 AM CDT Gender Identity Not on file Sexual Orientation Not on file 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 Not on file Not on fi le documented as of this encounter Plan of Treatment Upcoming Encounters Date Type Department Care Team (Late st Contact Info) Description 02/28/2025 9:30 AM CDT Telemedicine [facility] [address] [facility] [address] [place], [place] [address] Charlotte Avalos PA-C [address] [place] [address] documented as of this encounter Visit Diagnoses Not on filedocumented in this encounter Additional Health Concerns Infection Onset Date Last Indicated Resolved Time R/O COVID19 08/28/2020 08/28/2020 08/29/2020 4:35 AM INSIDE SALES REPRESENTATIVE R/O COVID19 04/18/2021 04/18/2021 04/19/2021 3:01 PM CDT R/O COVID19 04/21/2021 04/21/2021 04/22/2021 11:5 9 AM CDT R/O COVID19 04/23/2021 04/23/2021 04/24/2021 12:2 0 PM CDT COVID19 04/23/2021 04/23/2021 05/13/2021 3:18 AM INSIDE SALES REPRESENTATIVE documented as of this encounter Care Teams Green Chain Marker Relationship Specialty Start Date End Date Lora Zamora PA-C [address] [place] [address] PCP - General Physician Cloth Colors Examiner 02/17/22 documented as of this encounter
--- OUTSIDE RECORDS SUMMARY | 2025-02-11 01:01 | XMS_ITS | Encounter Summary ---
Author Organization [employer] Address [address], [place] [address] Care Team Providers Care Pre Sales Systems Engineer Name Role Phone Lora Zamora PA-C Primary Care Provider [phone] Encounter Details Date Type Department Care Team (Late st Contact Info) Description 04/09/2016 Emergency Room External to [facility], Provider EARACHE Social History Tobacco Use Types Packs/Day Years Used Date Smoking Tobacco: Former Cigarettes Smokeless Tobacco: Never Comments:Used to smoke in [employer] school Alcohol Use Standard Drinks/Week Comments No 0 (1 standard drink = 0.6 oz pur e alcohol) Comments No Sex and Gender Information Value Date Recorded Sex Assigned at Not on file Legal Sex Female 6:09 AM CDT Gender Identity Not on file Sexual Orientation Not on file 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 Not on file Not on fi le documented as of this encounter Plan of Treatment Upcoming Encounters Date Type Department Care Team (Late st Contact Info) Description 02/28/2025 9:30 AM CDT Telemedicine [facility] [address] [facility] [address] [place], [place] [address] Charlotte Avalos PA-C [address] [place] [address] documented as of this encounter Visit Diagnoses Not on filedocumented in this encounter Additional Health Concerns Infection Onset Date Last Indicated Resolved Time R/O COVID19 08/28/2020 08/28/2020 08/29/2020 4:35 AM ELECTRIC MOTOR REPAIRING SUPERVISOR R/O COVID19 04/18/2021 04/18/2021 04/19/2021 3:01 PM CDT R/O COVID19 04/21/2021 04/21/2021 04/22/2021 11:5 9 AM CDT R/O COVID19 04/23/2021 04/23/2021 04/24/2021 12:2 0 PM CDT COVID19 04/23/2021 04/23/2021 05/13/2021 3:18 AM ELECTRIC MOTOR REPAIRING SUPERVISOR documented as of this encounter Care Teams Pre Sales Systems Engineer Relationship Specialty Start Date End Date Lora Zamora PA-C [address] [place] [address] PCP - General Physician Elementary School Director 02/17/22 documented as of this encounter
--- OUTSIDE RECORDS SUMMARY | 2025-02-11 01:01 | XMS_ITS | Encounter Summary ---
Author Organization [employer] Address [address] [address] Care Team Providers Care Software Deployment Engineer Name Role Phone Lora Zamora PA-C Primary Care Provider [phone] Encounter Details Date Type Department Care Team (Late Contact Info) Description 02/13/2015 Correspondence External to External, [place] [address] RECALL OF PRESCRIPTION Social History Tobacco Use Types Packs/Day Years Used Date Smoking Tobacco: Former Cigarettes Smokeless Tobacco: Never Comments:Used to smoke in [employer] Alcohol Use Standard Drinks/Week Comments No 0 (1 standard drink = 0.6 oz pur e alcohol) Comments No Sex and Gender Information Value Date Recorded Sex Assigned at Not on file Legal Sex Female 6:09 AM CDT Gender Identity Not on file Sexual Orientation Not on file 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 Not on file Not on fi le documented as of this encounter Plan of Treatment Upcoming Encounters Date Type Department Care Team (Late st Contact Info) Description 02/28/2025 9:30 AM CDT Telemedicine [facility] [address] [facility] [address] [place], [place] [address] Charlotte Avalos PA-C [address] [place], [place] [address] documented as of this encounter Visit Diagnoses Not on filedocumented in this encounter Additional Health Concerns Infection Onset Date Last Indicated Resolved Time R/O COVID19 08/28/2020 08/28/2020 08/29/2020 4:35 AM YARD LABORER R/O COVID19 04/18/2021 04/18/2021 04/19/2021 3:01 PM CDT R/O COVID19 04/21/2021 04/21/2021 04/22/2021 11:5 9 AM CDT R/O COVID19 04/23/2021 04/23/2021 04/24/2021 12:2 0 PM CDT COVID19 04/23/2021 04/23/2021 05/13/2021 3:18 AM YARD LABORER documented as of this encounter Care Teams Software Deployment Engineer Relationship Specialty Start Date End Date Lora Zamora PA-C [address] [place] [address] PCP - General Physician Bulk Fluids Handler 02/17/22 documented as of this encounter
--- OUTSIDE RECORDS SUMMARY | 2025-02-11 01:01 | XMS_ITS | Encounter Summary ---
Author Organization [employer] [facility] Address [address] [place] [address] Care Team Providers Care Hot Stamp Operator Name Role Phone Lora Zamora PA-C Primary Care Provider [phone] Encounter Details Date Type Department Care Team (Late st Contact Info) Description 03/29/2012 Emergency Room External to Pamela Boyer, Provider SOB COUGH Social History Tobacco Use Types Packs/Day Years [...] as of this encounter Progress Notes * Pamela Boyer Provider - 03/29/2012 12:00 AM CDT documented in this encounter Plan of Treatment Upcoming Encounters Date Type Department Care Team (Late st Contact Info) Description 02/28/2025 9:30 AM CDT Telemedicine [facility] [address] [facility] [address] [place], [place] [address] Charlotte Avalos PA-C [address] [place], [place] [address] documented as of this encounter Visit Diagnoses Not on filedocumented in this encounter Additional Health Concerns Infection Onset Date Last Indicated Resolved Time R/O COVID19 08/28/2020 08/28/2020 08/29/2020 4:35 AM RECORDS ASSOCIATE R/O COVID19 04/18/2021 04/18/2021 04/19/2021 3:01 PM CDT R/O COVID19 04/21/2021 04/21/2021 04/22/2021 11:5 9 AM CDT R/O COVID19 04/23/2021 04/23/2021 04/24/2021 12:2 0 PM CDT COVID19 04/23/2021 04/23/2021 05/13/2021 3:18 AM RECORDS ASSOCIATE documented as of this encounter Care Teams Hot Stamp Operator Relationship Specialty Start Date End Date Lora Zamora PA-C [address] [place] [address] PCP - General Physician Sawmill Tally Clerk 02/17/22 documented as of this encounter
--- OUTSIDE RECORDS SUMMARY | 2025-02-11 01:01 | XMS_ITS | Encounter Summary ---
Author Organization [employer] Address [address], [place] [address] Care Team Providers Care College Archivist Name Role Phone Lora Zamora PA-C Primary Care Provider [phone] Encounter Details Date Type Department Care Team (Late st Contact Info) Description 02/08/2015 Correspondence [facility] [address] [place] [phone] Lora Zamora PA-C [address] [place] [address] MEDICAL INQUIRY FORM ADA ACCOMMODATION Social History Tobacco Use Types Packs/Day Years Used Date Smoking Tobacco: Former Cigarettes Smokeless Tobacco: Never Comments:Used to smoke in [employer] Alcohol Use Standard Drinks/Week Comments No 0 (1 standard drink = 0.6 oz pur e alcohol) Comments No Sex and Gender Information Value Date Recorded Sex Assigned at Not on file Legal Sex Female 6:09 AM CDT Gender Identity Not on file Sexual Orientation Not on file 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 Not on file Not on fi le documented as of this encounter Plan of Treatment Upcoming Encounters Date Type Department Care Team (Late st Contact Info) Description 02/28/2025 9:30 AM CDT Telemedicine [facility] [address] [facility] [address] [place], [place] [address] Charlotte Avalos PA-C [address] [place] [address] documented as of this encounter Visit Diagnoses Not on filedocumented in this encounter Additional Health Concerns Infection Onset Date Last Indicated Resolved Time R/O COVID19 08/28/2020 08/28/2020 08/29/2020 4:35 AM PETROLEUM PRODUCTION ENGINEER R/O COVID19 04/18/2021 04/18/2021 04/19/2021 3:01 PM CDT R/O COVID19 04/21/2021 04/21/2021 04/22/2021 11:5 9 AM CDT R/O COVID19 04/23/2021 04/23/2021 04/24/2021 12:2 0 PM CDT COVID19 04/23/2021 04/23/2021 05/13/2021 3:18 AM PETROLEUM PRODUCTION ENGINEER documented as of this encounter Care Teams College Archivist Relationship Specialty Start Date End Date Lora Zamora PA-C [address] [place] [address] PCP - General Physician Executive Admin 02/17/22 documented as of this encounter
--- OUTSIDE RECORDS SUMMARY | 2025-02-11 01:01 | XMS_ITS | Encounter Summary ---
Author Organization [employer] Address [address], [place] [address] Care Team Providers Care Dormitory Keeper Name Role Phone Lora Zamora PA-C Primary Care Provider [phone] Encounter Details Date Type Department Care Team (Late st Contact Info) Description 04/28/2013 Correspondence [facility] [address] [place] [phone] Lora Zamora PA-C [address] [place], [place] [id number] FMLA Social History Tobacco Use Types Packs/Day Years Used Date Smoking Tobacco: Never Smokeless Tobacco: Never Alcohol Use Standard Drinks/Week Comments Yes 0 (1 standard drink = 0.6 oz pure alcohol) one drink once yearly. srs 11/11/12 Comments No Sex and Gender Information Value Date Recorded Sex Assigned at Not on file Legal Sex Female 6:09 AM CDT Gender Identity Not on file Sexual Orientation Not on file documented as of this encounter Progress Notes * Lora Zamora PA-C - 04/28/2013 12:00 AM CDT documented in this encounter Plan of Treatment Upcoming Encounters Date Type Department Care Team (Late st Contact Info) Description 02/28/2025 9:30 AM CDT Telemedicine [facility] [address] [facility] [address] [place] [address] Charlotte Avalos PA-C [address] [place] [address] documented as of this encounter Visit Diagnoses Not on filedocumented in this encounter Additional Health Concerns Infection Onset Date Last Indicated Resolved Time R/O COVID19 08/28/2020 08/28/2020 08/29/2020 4:35 AM CERTIFIED HOME HEALTH AIDE R/O COVID19 04/18/2021 04/18/2021 04/19/2021 3:01 PM CDT R/O COVID19 04/21/2021 04/21/2021 04/22/2021 11:5 9 AM CDT R/O COVID19 04/23/2021 04/23/2021 04/24/2021 12:2 0 PM CDT COVID19 04/23/2021 04/23/2021 05/13/2021 3:18 AM CERTIFIED HOME HEALTH AIDE documented as of this encounter Care Teams Dormitory Keeper Relationship Specialty Start Date End Date Lora Zamora PA-C [address] [place] [address] PCP - General Physician Cloth Boil Off Machine Operator 02/17/22 documented as of this encounter
--- OUTSIDE RECORDS SUMMARY | 2025-02-11 01:01 | XMS_ITS | Patient Health Record ---
Author Organization [facility] Address [address] [place] [address] Care Team Providers Care Die Barber Name Role Phone Lora Zamora Primary Care Provider BE Nur [phone] Reason For Referral No Information Medications Medication SIG (Take, Route, Fr equency, Duration) Notes Start Date End Date Status hydroCHLOROthiazide Active Fluticasone Propionate Active Albuterol Active Fexofenadine HCl Act rigoberto Singulair Active Ibuprofen Active Benadryl Active Levothyroxine Sodium Active Lisinopril Active Problems Problem Type SNOMED Code ICD Code Onset Dates Problem Status W/U Status Risk Notes Problem 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
--- OUTSIDE RECORDS SUMMARY | 2025-02-11 01:01 | XMS_ITS | Encounter Summary ---
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 Not on file Not on fi le documented as of this encounter Plan of Treatment Upcoming Encounters Date Type Department Care Team (Late st Contact Info) Description 02/28/2025 9:30 AM CDT Telemedicine [facility] [address] [facility] [address] [place], [place] [address] Charlotte Avalos PA-C [address] [place] [address] documented as of this encounter Visit Diagnoses Not on filedocumented in this encounter Additional Health Concerns Infection Onset Date Last Indicated Resolved Time R/O COVID19 08/28/2020 08/28/2020 08/29/2020 4:35 AM CABLE INSTALLATION TECHNICIAN R/O COVID19 04/18/2021 04/18/2021 04/19/2021 3:01 PM CDT R/O COVID19 04/21/2021 04/21/2021 04/22/2021 11:5 9 AM CDT R/O COVID19 04/23/2021 04/23/2021 04/24/2021 12:2 0 PM CDT COVID19 04/23/2021 04/23/2021 05/13/2021 3:18 AM CABLE INSTALLATION TECHNICIAN documented as of this encounter Care Teams Custom Wood Stair Builder Relationship Specialty Start Date End Date Lora Zamora PA-C [address] [place] [address] PCP - General Physician Physical Medicine Teacher 02/17/22 documented as of this encounter
[2025-02-11 01:02] LABS: Alanine Aminotransferase* 27 U/L (4-35); Anion Gap 9 mEq/L (7-15); Aspartate Amino Transferase* 24 U/L (12-35); Bilirubin Total* 0.5 mg/dL (0.1-1.5); Blood Urea Nitrogen* 22 mg/dL (7-30); Calcium* 9.0 mg/dL (8.4-10.6); Carbon Dioxide* 26 mmol/L (20-32); Creatinine* 0.8 mg/dL (0.5-1.5); Est. Creatinine Clearance* 71.84; Estimated Glomerular Filt Rate 89 ml/min; Glucose* 101 mg/dL (60-115); Total Protein* 6.9 g/dL (6.0-8.3)
--- OUTSIDE RECORDS SUMMARY | 2025-02-11 01:02 | XMS_ITS | Encounter Summary ---
Author Organization [employer] Address [address] [address] Care Team Providers Care Tap And Die Maker Technician Name Role Phone Lora Zamora PA-C Primary Care Provider [phone] Encounter Details Date Type Department Care Team (Late st Contact Info) Description 12/01/2016 Refill Order [facility] [address] [place] [phone] Lora Zamora PA-C [address] [place] [address] Social History Tobacco Use Types Packs/Day Years Used Date Smoking Tobacco: Former Cigarettes Smokeless Tobacco: Never Comments:Used to smoke in [facility] [employer] [facility] school Alcohol Use Standard Drinks/Week Comments No 0 (1 standard drink = 0.6 oz pur e alcohol) Comments No Sex and Gender Information Value Date Recorded Sex Assigned at Not on file Legal Sex Female 6:09 AM CDT Gender Identity Not on file Sexual Orientation Not on file 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 Not on file Not on fi le documented as of this encounter Plan of Treatment Upcoming Encounters Date Type Department Care Team (Late st Contact Info) Description 02/28/2025 9:30 AM CDT Telemedicine [facility] [address] [facility] [address] [place], [place] [address] Charlotte Avalos, DANNY [address] [place] [address] documented as of this encounter Results * Sodium (01/15/2017 12:13 PM CDT) Sodium 137 136 - 145 mmol/L [facility] 01/15/2017 12:1 3 PM CDT 01/15/2017 12:14 PM CDT Narrative [facility] - 01/15/2017 6:15 PM CDT Performed at [facility], [address] [place] [address] us Lora Zamora PA-C LAB_1 Final Result Performing Organization Address [facility] de Phone Number [facility] [phone] * (ABNORMAL) Potassium (01/15/2017 12:13 PM CDT) Pathologist [facility] Potassium 3.4(L) 3.5 - 5.1 mmol/L [facility] 01/15/2017 12:1 3 PM CDT 01/15/2017 12:14 PM CDT Narrative [facility] - 01/15/2017 6:15 PM CDT Performed at [facility], [address] [place], [place] [id number] us Lora Zamora PA-C LAB_1 Final Result Performing Organization Address City/[facility]/ZIP Co de Phone Number [facility] [phone] * Creatinine / GFR (01/15/2017 12:13 PM CDT) Creatinine 0.58 0.55 - 1.02 mg/dl [facility] GFR, Estimated >60 >60 ml/min/1.7 3m2 [facility] GFR, Est., If Black >60 >60 ml/min/1.7 3m2 [facility] 01/15/2017 12:1 3 PM CDT 01/15/2017 12:14 PM CDT Narrative [facility] - 01/15/2017 6:15 PM CDT Performed at [facility], [address] [address] Lora Zamora PA-C LAB_1 Final Result [facility] [phone] documented in this encounter Visit Diagnoses Diagnosis Encounter for long-term (current) use of medications- Primary Encounter for long-term (current) use of other medications Recurrent sinusitis- Primary Unspecified sinusitis (chronic) Moderate persistent asthma without complication (HRC) Unspecified asthma Encounter for long-term (current) use of medications Encounter for long-term (current) use of other medications documented in this encounter Additional Health Concerns Infection Onset Date Last Indicated Resolved Time R/O COVID19 08/28/2020 08/28/2020 08/29/2020 4:35 AM WELDING SUPERVISOR R/O COVID19 04/18/2021 04/18/2021 04/19/2021 3:01 PM CDT R/O COVID19 04/21/2021 04/21/2021 04/22/2021 11:5 9 AM CDT R/O COVID19 04/23/2021 04/23/2021 04/24/2021 12:2 0 PM CDT COVID19 04/23/2021 04/23/2021 05/13/2021 3:18 AM WELDING SUPERVISOR documented as of this encounter Care Teams Tap And Die Maker Technician Relationship Specialty Start Date End Date Lora Zamora PA-C [address] [place] [address] PCP - General Physician Sanitation Truck Cleaner 02/17/22 documented as of this encounter
--- OUTSIDE RECORDS SUMMARY | 2025-02-11 01:02 | XMS_ITS | Clinical Summary ---
Author Organization [employer] Address [address] [place] [address] Care Team Providers Care Chiropractor Assistant Name Role Phone Lora Zamora PA-C Primary Care Provider [phone] Allergies No known active allergies Medications EDUARDO-D 12 HOUR 60 MG-120 MG TABIndications:A llergic rhinitis, cause unspecified take 1 tablet by oral route 2 times per day 0 12/24/19 06 Active ALBUTEROL SULFATE 0.083 % SOLN FOR INHALATIONIndica tions:Unspecifie d asthma, with exacerbation inhale 3 milliliters (2.5mg) by nebulization route 3 times per day 2 wks 1 04/21/20 06 Active NEBULIZER WITH ADULT MASK KITIndications:U nspecified asthma, with exacerbation,Uns pecified asthma(493.90) to use as directed at home prn 1 0 04/21/20 06 Active ALBUTEROL 90 MCG/ACTUATION AEROSOL INHALERIndicatio ns:Unspecified asthma(493.90) inhale 1 puff by inhalation route every 4-6 hours as needed 2 mdi 4 08/26/19 07 Active IMITREX 100 MG TABIndications:U nspecified asthma(493.90) take 1 tablet (100mg) by oral route x 1 dose with fluids as early as possible after the onset of a migraine attack; if headache returns, the dose may be repeated after 2 hours, not to exceed a total daily dose of 200mg 8 3 08/26/19 07 Active ZOLOFT 100 MG TABIndications:A nxiety state, unspecified take 1 tablet (100mg) by oral route once daily 30 5 02/22/20 07 Active ADVAIR DISKUS 500 MCG-50 MCG/DOSE FOR INHALATION inhale 1 puff by inhalation route 2 times per day morning and evening approximately 12 hours apart 1 5 08/26/19 07 Active EDUARDO 180 MG TAB take 1 tablet (180mg) by oral route once daily 31 5 08/26/19 07 Active HYDROCHLOROTHIAZ KEYUR 25 MG TABIndications:U nspecified essential hypertension take 1 tablet (25mg) by oral route once daily 31 0 09/28/19 07 Active TRIAMCINOLONE ACETONIDE 0.1 % TOPICAL CREAMIndications :Other atopic dermatitis and related conditions apply a thin film to the affected skin areas by topical route 2 times per day 30 gm 0 10/12/19 07 Active ADVAIR DISKUS 500 MCG-50 MCG/DOSE FOR INHALATIONIndica tions:Unspecifie d asthma(493.90) inhale 1 puff by inhalation route 2 times per day morning and evening approximately 12 hours apart 0 10/20/19 07 Active SINGULAIR 10 MG TABIndications:U nspecified asthma(493.90),A llergic rhinitis, cause unspecified take 1 tablet (10mg) by oral route once daily in the evening 30 5 10/30/19 07 Active NASACORT 55 MCG/ACTUATION NASAL SPRAYIndications :Allergic rhinitis, cause unspecified inhale 1 spray in each nostril by nasal route once daily 1 6 02/29/20 07 Active HYDROCHLOROTHIAZ KEYUR 25 MG TABIndications:U nspecified essential hypertension take 1 tablet (25mg) by oral route once daily 60 0 03/01/20 07 Active EDUARDO 180 MG TAB take 1 tablet (180mg) by oral route once daily 30 5 04/07/20 07 Active levothyroxine sodium (LEVOTHYROXINE ORAL) Take by mouth. Activ e Active Problems Problem Noted Date Diagnosed Date Unspecified essential hypertension 08/26/2006 Unspecified asthma(493.90) 12/23/2005 Allergic rhinitis, cause unspecified 12/23/2005 Anxiety state, unspecified 12/23/2005 Other atopic dermatitis and related conditions 0 12/23/2005 Immunizations Immunization Administration Dates Next Due Influenza, IIV3 (Age >=3 years) 06/02/2006 Social History Tobacco Use Types Packs/Day Years Used Date Smoking Tobacco: Never Alcohol Use Standard Drinks/Week Comments No 0 (1 standard drink = 0.6 oz pur e alcohol) Comments No Sex and Gender Information Value Date Recorded Sex Assigned at Not on file Legal Sex Female 7:16 AM COIL WRAPPER Gender Identity Not on file Sexual Orientation Not on file 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 Not on file Not on fi le Obstetrics History Last Filed Vital Signs Vital Sign Reading Time Taken Comments Blood Pressure 153/90 11/29/2017 6:10 PM CDT Pulse 94 11/29/2017 6:10 PM CDT Temperature 37 C (98.6 F) 11/29/2017 6:10 PM CDT Respiratory Rate 16 11/29/2017 6:10 PM CDT Oxygen Saturation 96% 11/29/2017 6:10 PM CDT Inhaled Oxygen Concentration - - Weight 110.2 kg (243 lb) 08/26/2006 4:00 PM COIL WRAPPER Height 162.6 cm (5' 4) 06/11/2006 1:20 PM COIL WRAPPER Body Mass Index 41.71 06/11/2006 1:20 PM COIL WRAPPER Plan of Treatment Health Maintenance Due Date Last Done Comments Tetanus booster 1985 Depression screening for age 12+ 1986 HIV for age 15-65 1989 BMI (ht and wt on same day) for age 18+ 01/31/1992 Hepatitis C screening for age 18-79 01/31/1992 Hepatitis B series for 19+ ( 1 of 3 - 19+ 3-dose series) 1993 Pap test for age 21-65 1995 Colonoscopy through age 75 2019 Lipids for age 45-75 2019 Mammogram for age 45-75 2019 Pneumococcal series for age 50+ (1 of 1 - PCV) 024 Zoster (shingles) series for age 50+ (1 of 2) 01/31/20 24 COVID-19 vaccine series (1 - 2023- season) 4 Influenza Vaccine (#1) 2025 06/02/2006 Insurance BLUE CROSS OF NON-CT-ITS [employer] Care Teams Chiropractor Assistant Relationship Specialty Start Date End Date Lora Zamora PA-C PCP - General Physician Spring Fitter 11/29/17
--- OUTSIDE RECORDS SUMMARY | 2025-02-11 01:02 | XMS_ITS | Encounter Summary ---
Author Organization [employer] Address [address], [place] [address] Care Team Providers Care Phd Intern Name Role Phone Lora Zamora PA-C Primary Care Provider [phone] Encounter Details Date Type Department Care Team (Late st Contact Info) Description 11/16/2014 Correspondence [facility] [address] [place] [phone] Lora Zamora PA-C [address] [place] [address] FMLA Social History Tobacco Use Types Packs/Day Years Used Date Smoking Tobacco: Former Cigarettes Smokeless Tobacco: Never Comments:Used to smoke in 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 [address] [place], [place] [address] Charlotte Avalos PA-C [address] [place] [address] documented as of this encounter Visit Diagnoses Not on filedocumented in this encounter Additional Health Concerns Infection Onset Date Last Indicated Resolved Time R/O COVID19 08/28/2020 08/28/2020 08/29/2020 4:35 AM SUBSTATION OPERATOR TRANSFORMING R/O COVID19 04/18/2021 04/18/2021 04/19/2021 3:01 PM CDT R/O COVID19 04/21/2021 04/21/2021 04/22/2021 11:5 9 AM CDT R/O COVID19 04/23/2021 04/23/2021 04/24/2021 12:2 0 PM CDT COVID19 04/23/2021 04/23/2021 05/13/2021 3:18 AM SUBSTATION OPERATOR TRANSFORMING documented as of this encounter Care Teams Phd Intern Relationship Specialty Start Date End Date Lora Zamora PA-C [address] [place] [address] PCP - General Physician Manager Cost 02/17/22 documented as of this encounter
--- OUTSIDE RECORDS SUMMARY | 2025-02-11 01:02 | XMS_ITS | Encounter Summary ---
Author Organization [employer] Address [address] [place] [address] Care Team Providers Care Rn Birthing Name Role Phone Lora Zamora PA-C Primary Care Provider Encounter Details Date Type Department Care Team (Late st Contact Info) Description 09/29/2017 Correspondence None No Primary/Referring, y E EQUIPMENT HEALTH DATA ADMINISTRATOR TICKET Social History Tobacco Use Types Packs/Day Years Used Date Smoking Tobacco: Former Cigarettes Smokeless Tobacco: Never Comments:Used to smoke in [employer] Alcohol Use Standard Drinks/Week Comments No 0 (1 standard drink = 0.6 oz pur e alcohol) Comments No Sex and Gender Information Value Date Recorded Sex Assigned at Not on file Legal Sex Female 6:09 AM CDT Gender Identity Not on file Sexual Orientation Not on file 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 Not on file Not on fi le documented as of this encounter Plan of Treatment Upcoming Encounters Date Type Department Care Team (Late st Contact Info) Description 02/28/2025 9:30 AM CDT Telemedicine [facility] [address] [facility] [address] [place], [place] [address] Charlotte Avalos PA-C [address] [place] [address] documented as of this encounter Visit Diagnoses Not on filedocumented in this encounter Additional Health Concerns Infection Onset Date Last Indicated Resolved Time R/O COVID19 08/28/2020 08/28/2020 08/29/2020 4:35 AM CEO [place] R/O COVID19 04/18/2021 04/18/2021 04/19/2021 3:01 PM CDT R/O COVID19 04/21/2021 04/21/2021 04/22/2021 11:5 9 AM CDT R/O COVID19 04/23/2021 04/23/2021 04/24/2021 12:2 0 PM CDT COVID19 04/23/2021 04/23/2021 05/13/2021 3:18 AM CEO [place] documented as of this encounter Care Teams Rn Birthing Relationship Specialty Start Date End Date Lora Zamora PA-C [address] [place] [address] PCP - General Physician Termite Control Servicer 02/17/22 documented as of this encounter
--- OUTSIDE RECORDS SUMMARY | 2025-02-11 01:02 | XMS_ITS | Encounter Summary ---
Author Organization [employer] Address [address] [address] Care Team Providers Care Site Director Name Role Phone Lora Zamora PA-C Primary Care Provider [phone] Encounter Details Date Type Department Care Team (Late st Contact Info) Description 04/13/2017 Correspondence None No Primary/Referring, Phy DME INSTRUCTION DELIVERY Social History Tobacco Use Types Packs/Day Years Used Date Smoking Tobacco: Former Cigarettes Smokeless Tobacco: Never Comments:Used to smoke in [employer] school Alcohol Use Standard Drinks/Week Comments No 0 (1 standard drink = 0.6 oz pur e alcohol) Comments No Sex and Gender Information Value Date Recorded Sex Assigned at Not on file Legal Sex Female 6:09 AM CDT Gender Identity Not on file Sexual Orientation Not on file 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 Not on file Not on fi le documented as of this encounter Plan of Treatment Upcoming Encounters Date Type Department Care Team (Late st Contact Info) Description 02/28/2025 9:30 AM CDT Telemedicine [facility] [address] [facility] [address] [place], [place] [address] Charlotte Avalos PA-C [address] [place] [address] documented as of this encounter Visit Diagnoses Not on filedocumented in this encounter Additional Health Concerns Infection Onset Date Last Indicated Resolved Time R/O COVID19 08/28/2020 08/28/2020 08/29/2020 4:35 AM CANDY SPREADER HELPER R/O COVID19 04/18/2021 04/18/2021 04/19/2021 3:01 PM CDT R/O COVID19 04/21/2021 04/21/2021 04/22/2021 11:5 9 AM CDT R/O COVID19 04/23/2021 04/23/2021 04/24/2021 12:2 0 PM CDT COVID19 04/23/2021 04/23/2021 05/13/2021 3:18 AM CANDY SPREADER HELPER documented as of this encounter Care Teams Site Director Relationship Specialty Start Date End Date Lora Zamora PA-C [address] [place] [address] PCP - General Physician Seamless Tube Mill Operator 02/17/22 documented as of this encounter
--- OUTSIDE RECORDS SUMMARY | 2025-02-11 01:02 | XMS_ITS | Encounter Summary ---
Author Organization [employer] Address [address] [address] Care Team Providers Care Web Art Director Name Role Phone Lora Zamora PA-C Primary Care Provider [phone] Encounter Details Date Type Department Care Team (Late st Contact Info) Description 11/02/2014 Correspondence [facility] [address] [place] [phone] Lora Zamora PA-C [address] [place] [address] FMLA Social History Tobacco Use Types Packs/Day Years Used Date Smoking Tobacco: Former Cigarettes Smokeless Tobacco: Never Comments:Used to smoke in [facility] Alcohol Use Standard Drinks/Week Comments No 0 (1 standard drink = 0.6 oz pur e alcohol) Comments No Sex and Gender Information Value Date Recorded Sex Assigned at Not on file Legal Sex Female 6:09 AM CDT Gender Identity Not on file Sexual Orientation Not on file 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 Not on file Not on fi le documented as of this encounter Plan of Treatment Upcoming Encounters Date Type Department Care Team (Late st Contact Info) Description 02/28/2025 9:30 AM CDT Telemedicine [facility] [address] [facility] [address] [place], [place] [phone] Charlotte Avalos PA-C [address] [place] [address] documented as of this encounter Visit Diagnoses Not on filedocumented in this encounter Additional Health Concerns Infection Onset Date Last Indicated Resolved Time R/O COVID19 08/28/2020 08/28/2020 08/29/2020 4:35 AM PHONOGRAPH MECHANIC R/O COVID19 04/18/2021 04/18/2021 04/19/2021 3:01 PM CDT R/O COVID19 04/21/2021 04/21/2021 04/22/2021 11:5 9 AM CDT R/O COVID19 04/23/2021 04/23/2021 04/24/2021 12:2 0 PM CDT COVID19 04/23/2021 04/23/2021 05/13/2021 3:18 AM PHONOGRAPH MECHANIC documented as of this encounter Care Teams Web Art Director Relationship Specialty Start Date End Date Lora Zamora PA-C [address] [place] [address] PCP - General Physician Addictions Counselor Assistant 02/17/22 documented as of this encounter
--- OUTSIDE RECORDS SUMMARY | 2025-02-11 01:02 | XMS_ITS | Encounter Summary ---
Author Organization [employer] Address [address] [address] Care Team Providers Care Deer Farm Worker Name Role Phone Lora Zamora PA-C Primary Care Provider [phone] Encounter Details Date Type Department Care Team (Late st Contact Info) Description 11/09/2014 Correspondence [facility] [address] [place] [phone] Lora Zamora PA-C [address] [place] [address] FMLA Social History Tobacco Use Types Packs/Day Years Used Date Smoking Tobacco: Former Cigarettes Smokeless Tobacco: Never Comments:Used to smoke in [facility] [employer] Alcohol Use Standard Drinks/Week Comments No 0 (1 standard drink = 0.6 oz pur e alcohol) Comments No Sex and Gender Information Value Date Recorded Sex Assigned at Not on file Legal Sex Female 6:09 AM CDT Gender Identity Not on file Sexual Orientation Not on file 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 Not on file Not on fi le documented as of this encounter Plan of Treatment Upcoming Encounters Date Type Department Care Team (Late st Contact Info) Description 02/28/2025 9:30 AM CDT Telemedicine [facility] [address] [facility] [address] [place], [place] [address] Charlotte Avalos PA-C [address] [place] [address] documented as of this encounter Visit Diagnoses Not on filedocumented in this encounter Additional Health Concerns Infection Onset Date Last Indicated Resolved Time R/O COVID19 08/28/2020 08/28/2020 08/29/2020 4:35 AM SUMMER LAW ASSOCIATE R/O COVID19 04/18/2021 04/18/2021 04/19/2021 3:01 PM CDT R/O COVID19 04/21/2021 04/21/2021 04/22/2021 11:5 9 AM CDT R/O COVID19 04/23/2021 04/23/2021 04/24/2021 12:2 0 PM CDT COVID19 04/23/2021 04/23/2021 05/13/2021 3:18 AM SUMMER LAW ASSOCIATE documented as of this encounter Care Teams Deer Farm Worker Relationship Specialty Start Date End Date Lora Zamora PA-C [address] [place] [address] PCP - General Physician Aboriginal Home [employer] Liaison Officer 02/17/22 documented as of this encounter
--- OUTSIDE RECORDS SUMMARY | 2025-02-11 01:02 | XMS_ITS | Encounter Summary ---
Author Organization [employer] Address [address] [address] Care Team Providers Care Cancer Registry Coordinator Name Role Phone Lora Zamora PA-C Primary Care Provider [phone] Encounter Details Date Type Department Care Team (Late st Contact Info) Description 12/17/2014 Correspondence [facility] [address] [place] [phone] Lora Zamora PA-C [address] [place] [address] FMLA Social History Tobacco Use Types Packs/Day Years Used Date Smoking Tobacco: Former Cigarettes Smokeless Tobacco: Never Comments:Used to smoke in [employer] [employer] Alcohol Use Standard Drinks/Week Comments No 0 (1 standard drink = 0.6 oz pur e alcohol) Comments No Sex and Gender Information Value Date Recorded Sex Assigned at Not on file Legal Sex Female 6:09 AM CDT Gender Identity Not on file Sexual Orientation Not on file 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 Not on fi le documented as of this encounter Plan of Treatment Upcoming Encounters Date Type Department Care Team (Late st Contact Info) Description 02/28/2025 9:30 AM CDT Telemedicine [facility] [address] [facility] [address] [place], [place] [address] Charlotte Avalos PA-C [address] [place] [address] documented as of this encounter Visit Diagnoses Not on filedocumented in this encounter Additional Health Concerns Infection Onset Date Last Indicated Resolved Time R/O COVID19 08/28/2020 08/28/2020 08/29/2020 4:35 AM PERMIT COORDINATOR R/O COVID19 04/18/2021 04/18/2021 04/19/2021 3:01 PM CDT R/O COVID19 04/21/2021 04/21/2021 04/22/2021 11:5 9 AM CDT R/O COVID19 04/23/2021 04/23/2021 04/24/2021 12:2 0 PM CDT COVID19 04/23/2021 04/23/2021 05/13/2021 3:18 AM PERMIT COORDINATOR documented as of this encounter Care Teams Cancer Registry Coordinator Relationship Specialty Start Date End Date Lora Zamora PA-C [address] [place] [address] PCP - General Physician Smoking Tobacco Packing Machine Hand 02/17/22 documented as of this encounter
--- OUTSIDE RECORDS SUMMARY | 2025-02-11 01:02 | XMS_ITS | Encounter Summary ---
Author Organization [employer] Address [address] [address] Care Team Providers Care Supervisor General Name Role Phone Lora Zamora PA-C Primary Care Provider [phone] Encounter Details Date Type Department Care Team (Late st Contact Info) Description 10/15/2014 Correspondence [facility] [address] [place] [phone] Lora Zamora PA-C [address] [place] [address] FMLA Social History Tobacco Use Types Packs/Day Years Used Date Smoking Tobacco: Former Cigarettes Smokeless Tobacco: Never Comments:Used to smoke in [facility] school Alcohol Use Standard Drinks/Week Comments No 0 (1 standard drink = 0.6 oz pur e alcohol) Comments No Sex and Gender Information Value Date Recorded Sex Assigned at Not on file Legal Sex Female 6:09 AM CDT Gender Identity Not on file Sexual Orientation Not on file 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 Not on file Not on fi le documented as of this encounter Plan of Treatment Upcoming Encounters Date Type Department Care Team (Late st Contact Info) Description 02/28/2025 9:30 AM CDT Telemedicine [facility] [address] [facility] [address] [place], [place] [address] Charlotte Avalos PA-C [address] [place] [address] documented as of this encounter Visit Diagnoses Not on filedocumented in this encounter Additional Health Concerns Infection Onset Date Last Indicated Resolved Time R/O COVID19 08/28/2020 08/28/2020 08/29/2020 4:35 AM EDUCATIONAL PROGRAM ASSISTANT R/O COVID19 04/18/2021 04/18/2021 04/19/2021 3:01 PM CDT R/O COVID19 04/21/2021 04/21/2021 04/22/2021 11:5 9 AM CDT R/O COVID19 04/23/2021 04/23/2021 04/24/2021 12:2 0 PM CDT COVID19 04/23/2021 04/23/2021 05/13/2021 3:18 AM EDUCATIONAL PROGRAM ASSISTANT documented as of this encounter Care Teams Supervisor General Relationship Specialty Start Date End Date Lora Zamora PA-C [address] [place] [address] PCP - General Physician Sampler And Test Preparer 02/17/22 documented as of this encounter
--- OUTSIDE RECORDS SUMMARY | 2025-02-11 01:02 | XMS_ITS | Encounter Summary ---
Author Organization [employer] Address [address], [place] [address] Care Team Providers Care Certified Adaptive Physical Educator Name Role Phone Lora Zamora PA-C Primary Care Provider [phone] Encounter Details Date Type Department Care Team (Late st Contact Info) Description 11/28/2014 Correspondence [facility] [address] [place] [phone] Lora Zamora PA-C [address] [place] [address] FMLA Social History Tobacco Use Types Packs/Day Years Used Date Smoking Tobacco: Former Cigarettes Smokeless Tobacco: Never Comments:Used to smoke in [employer] [employer] Alcohol Use Standard Drinks/Week Comments No 0 (1 standard drink = 0.6 oz pur e alcohol) Comments No Sex and Gender Information Value Date Recorded Sex Assigned at Not on file Legal Sex Female 6:09 AM CDT Gender Identity Not on file Sexual Orientation Not on file 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 Not on file Not on fi le documented as of this encounter Plan of Treatment Upcoming Encounters Date Type Department Care Team (Late st Contact Info) Description 02/28/2025 9:30 AM CDT Telemedicine [facility] [address] [facility] [address] [place], [place] [address] Charlotte Avalos PA-C [address] [place] [address] documented as of this encounter Visit Diagnoses Not on filedocumented in this encounter Additional Health Concerns Infection Onset Date Last Indicated Resolved Time R/O COVID19 08/28/2020 08/28/2020 08/29/2020 4:35 AM ASSISTANT PROFESSOR OF PSYCHOLOGY R/O COVID19 04/18/2021 04/18/2021 04/19/2021 3:01 PM CDT R/O COVID19 04/21/2021 04/21/2021 04/22/2021 11:5 9 AM CDT R/O COVID19 04/23/2021 04/23/2021 04/24/2021 12:2 0 PM CDT COVID19 04/23/2021 04/23/2021 05/13/2021 3:18 AM ASSISTANT PROFESSOR OF PSYCHOLOGY documented as of this encounter Care Teams Certified Adaptive Physical Educator Relationship Specialty Start Date End Date Lora Zamora PA-C [address] [place] [address] PCP - General Physician Change Control Analyst 02/17/22 documented as of this encounter
--- OUTSIDE RECORDS SUMMARY | 2025-02-11 01:02 | XMS_ITS | Encounter Summary ---
Author Organization [employer] Address [address] [address] Care Team Providers Care Qa Automation Architect Name Role Phone Lora Zamora PA-C Primary Care Provider [phone] Encounter Details Date Type Department Care Team (Late st Contact Info) Description 11/29/2017 Emergency Room External to [facility] Social History Tobacco Use Types Packs/Day Years Used Date Smoking Tobacco: Former Cigarettes Smokeless Tobacco: Never Comments:Used to smoke in [employer] Alcohol Use Standard Drinks/Week Comments No [...] [facility] [address] [facility] [address] [place], [place] [address] Charlotte Avalos PA-C [address] [place] [address] documented as of this encounter Visit Diagnoses Not on filedocumented in this encounter Additional Health Concerns Infection Onset Date Last Indicated Resolved Time R/O COVID19 08/28/2020 08/28/2020 08/29/2020 4:35 AM TECHNICAL ENGINEER R/O COVID19 04/18/2021 04/18/2021 04/19/2021 3:01 PM CDT R/O COVID19 04/21/2021 04/21/2021 04/22/2021 11:5 9 AM CDT R/O COVID19 04/23/2021 04/23/2021 04/24/2021 12:2 0 PM CDT COVID19 04/23/2021 04/23/2021 05/13/2021 3:18 AM TECHNICAL ENGINEER documented as of this encounter Care Teams Qa Automation Architect Relationship Specialty Start Date End Date Lora Zamora PA-C [address] [place] [address] PCP - General Physician Supervisory Geographer 02/17/22 documented as of this encounter
--- OUTSIDE RECORDS SUMMARY | 2025-02-11 01:02 | XMS_ITS | Encounter Summary ---
Author Organization [employer] Address [address], [place] [address] Care Team Providers Care Coffee Machine Technician Name Role Phone Lora Zamora PA-C Primary Care Provider [phone] Encounter Details Date Type Department Care Team (Late st Contact Info) Description 10/22/2014 Correspondence [facility] [address] [place] [phone] Lora Zamora PA-C [address] [place] [address] FMLA Social History Tobacco Use Types Packs/Day Years Used Date Smoking Tobacco: Former Cigarettes Smokeless Tobacco: Never Comments:Used to smoke in [facility] [employer] Alcohol Use Standard Drinks/Week Comments No 0 (1 standard drink = 0.6 oz pur e alcohol) Comments No Sex and Gender Information Value Date Recorded Sex Assigned at Not on file Legal Sex Female 6:09 AM CDT Gender Identity Not on file Sexual Orientation Not on file 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 Not on fi le documented as of this encounter Plan of Treatment Upcoming Encounters Date Type Department Care Team (Late st Contact Info) Description 02/28/2025 9:30 AM CDT Telemedicine [facility] [address] [facility] [address] [place], [place] [address] Charlotte Avalos PA-C [address] [place] [address] documented as of this encounter Visit Diagnoses Not on filedocumented in this encounter Additional Health Concerns Infection Onset Date Last Indicated Resolved Time R/O COVID19 08/28/2020 08/28/2020 08/29/2020 4:35 AM PROJECT PRODUCT MANAGER R/O COVID19 04/18/2021 04/18/2021 04/19/2021 3:01 PM CDT R/O COVID19 04/21/2021 04/21/2021 04/22/2021 11:5 9 AM CDT R/O COVID19 04/23/2021 04/23/2021 04/24/2021 12:2 0 PM CDT COVID19 04/23/2021 04/23/2021 05/13/2021 3:18 AM PROJECT PRODUCT MANAGER documented as of this encounter Care Teams Coffee Machine Technician Relationship Specialty Start Date End Date Lora Zamora PA-C [address] [place] [address] PCP - General Physician Clean Room Technician 02/17/22 documented as of this encounter
--- OUTSIDE RECORDS SUMMARY | 2025-02-11 01:02 | XMS_ITS | Encounter Summary ---
Author Organization [employer] Address [address], [place] [address] Care Team Providers Care Collar Fuser Name Role Phone Lora Zamora PA-C Primary Care Provider [phone] Encounter Details Date Type Department Care Team (Late Contact Info) Description 06/16/2014 Emergency Room External to External, [place] [address] [facility] Social History Tobacco Use Types Packs/Day Years Used Date Smoking Tobacco: Former Cigarettes Smokeless Tobacco: Never Comments:Used to smoke in [employer] Alcohol Use Standard Drinks/Week Comments No [...] Encounters Date Type Department Care Team (Late Contact Info) Description 02/28/2025 9:30 AM CDT Telemedicine [facility] [address] [facility] [address] [place], [place] [address] Charlotte Avalos PA-C [address] [place], [place] [address] documented as of this encounter Visit Diagnoses Not on filedocumented in this encounter Additional Health Concerns Infection Onset Date Last Indicated Resolved Time R/O COVID19 08/28/2020 08/28/2020 08/29/2020 4:35 AM DOG BARBER R/O COVID19 04/18/2021 04/18/2021 04/19/2021 3:01 PM CDT R/O COVID19 04/21/2021 04/21/2021 04/22/2021 11:5 9 AM CDT R/O COVID19 04/23/2021 04/23/2021 04/24/2021 12:2 0 PM CDT COVID19 04/23/2021 04/23/2021 05/13/2021 3:18 AM DOG BARBER documented as of this encounter Care Teams Collar Fuser Relationship Specialty Start Date End Date Lora Zamora PA-C [address] [place] [address] PCP - General Physician Cotton Seed Culler 02/17/22 documented as of this encounter
--- OUTSIDE RECORDS SUMMARY | 2025-02-11 01:02 | XMS_ITS | Encounter Summary ---
Author Organization [employer] Address [address] [address] Care Team Providers Care Poker Prop Player Name Role Phone Lora Zamora PA-C Primary Care Provider Encounter Details Date Type Department Care Team (Late st Contact Info) Description 10/12/2014 Correspondence None [facility], Provider CERT OF HEALTH CARE PROVIDER FMLA Social History Tobacco Use Types Packs/Day Years Used Date Smoking Tobacco: Former Cigarettes Smokeless Tobacco: Never Comments:Used to smoke in [facility] school Alcohol Use Standard Drinks/Week [...] [facility] [address] [facility] [address] [place], [place] [address] Charlotte Avalos PA-C [address] [place] [address] documented as of this encounter Visit Diagnoses Not on filedocumented in this encounter Additional Health Concerns Infection Onset Date Last Indicated Resolved Time R/O COVID19 08/28/2020 08/28/2020 08/29/2020 4:35 AM GAME PRESERVE MANAGER R/O COVID19 04/18/2021 04/18/2021 04/19/2021 3:01 PM CDT R/O COVID19 04/21/2021 04/21/2021 04/22/2021 11:5 9 AM CDT R/O COVID19 04/23/2021 04/23/2021 04/24/2021 12:2 0 PM CDT COVID19 04/23/2021 04/23/2021 05/13/2021 3:18 AM GAME PRESERVE MANAGER documented as of this encounter Care Teams Poker Prop Player Relationship Specialty Start Date End Date Lora Zamora PA-C [address] [place] [address] PCP - General Physician Ticket Taker 02/17/22 documented as of this encounter
--- OUTSIDE RECORDS SUMMARY | 2025-02-11 01:02 | XMS_ITS | Encounter Summary ---
Author Organization [employer] Address [address], [place] [address] Care Team Providers Care Western Felt Hat Blocker Name Role Phone Lora Zamora PA-C Primary Care Provider [phone] Encounter Details Date Type Department Care Team (Late st Contact Info) Description 07/20/2016 Refill Order [facility] [address] [place] [phone] Lora Zamora PA-C [address] [place] [address] Social History Tobacco Use Types Packs/Day Years Used Date Smoking Tobacco: Former Cigarettes Smokeless Tobacco: Never Comments:Used to smoke in [facility] school Alcohol Use Standard Drinks/Week Comments No 0 (1 standard drink = 0.6 oz pur e alcohol) Comments No Sex and Gender Information Value Date Recorded Sex Assigned at Not on file Legal Sex Female 6:09 AM CDT Gender Identity Not on file Sexual Orientation Not on file 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 Gina Dai CMA 07/23/2016, 8:32 AM W DRIVER OPERATOR documented in this encounter Plan of Treatment Upcoming Encounters Date Type Department Care Team (Late st Contact Info) Description 02/28/2025 9:30 AM CDT Telemedicine [facility] [address] [facility] [address] [place] [address] Charlotte Avalos PA-C [address] [place] [address] documented as of this encounter Visit Diagnoses Diagnosis Encounter for long-term (current) use of medications- Primary Encounter for long-term (current) use of other medications documented in this encounter Additional Health Concerns Infection Onset Date Last Indicated Resolved Time R/O COVID19 08/28/2020 08/28/2020 08/29/2020 4:35 AM SCREW DRIVER OPERATOR R/O COVID19 04/18/2021 04/18/2021 04/19/2021 3:01 PM CDT R/O COVID19 04/21/2021 04/21/2021 04/22/2021 11:5 9 AM CDT R/O COVID19 04/23/2021 04/23/2021 04/24/2021 12:2 0 PM CDT COVID19 04/23/2021 04/23/2021 05/13/2021 3:18 AM SCREW DRIVER OPERATOR documented as of this encounter Care Teams Western Felt Hat Blocker Relationship Specialty Start Date End Date Lora Zamora PA-C [address] [place] [address] PCP - General Physician Assistant Field Hockey Coach 02/17/22 documented as of this encounter
[2025-02-11 01:03] LABS: Alkaline Phosphatase* 71 U/L (40-150)
[2025-02-11 01:30] VITALS: BP 115/62; PULSE 78; RESP 16; O2SAT 97
[2025-02-11 03:39] LABS: Lactate* 2.1 mmol/L (0.5-1.9)
[2025-02-11 03:44] LABS: Appearance Urine Clear (Clear)
[2025-02-11] MEDS: POTASSIUM CHLORIDE 10 MEQ CAPSULE ER 40 MEQ PO (03:57)
== END 2025-02-11 04:13 | disposition home or self-care (01) ==
LOC: ED 02-11 00:58
PROVIDERS: Emergency Provider Emergency Medicine
DX: S06.9X9A Unspecified intracranial injury with loss of consciousness of unspecified duration, initial encounter (principal); R51.9 Headache, unspecified; M54.2 Cervicalgia; W18.30XA Fall on same level, unspecified, initial encounter
CPT/HCPCS: 36415; 70450; 72125; 80053; 81001; 83605; 84484; 85025; 87086; 96361; 96374; 99284; 99285; A9270; J1885; J7030